=== PATIENT | male | born 1955 | race Caucasian/White ===

== ENCOUNTER 2018-01-03 08:02 | Emergency (ER) | payer MEDICARE ==
[~2018-01-03] VITALS: Ht 170.2 cm; Wt 99.8 kg
[~2018-01-03 08:02] MED LIST: ASPIRIN81 MG PO
[2018-01-03] MEDS ORDERED: ALBUTEROL SULF 0.083% NEB SOLN 3 ML NEB NEB STA (08:40)
[2018-01-03] MEDS ORDERED: IPRATROPIUM BROMIDE 0.02% 2.5 ML NEB NEB ONE (08:45)
--- NOTE | 2018-01-03 09:56 | Diagnostic Imaging Report ---
PROCEDURE: X-RAY CHEST, TWO VIEWS COMPARISON: None. INDICATIONS: LEFT SIDE CHEST PAIN, LEFT SCAPULAR PAIN FINDINGS: Lungs are well-inflated. No focal airspace consolidation, pleural effusion, or pneumothorax. Tortuosity of the thoracic aorta with atherosclerotic calcification. Normal heart size. No pulmonary edema. No acute osseous abnormality. CONCLUSION: No acute cardiopulmonary abnormality. Dictated by: Jeet Fam M.D. on 01/03/2018 at 9:08 Electronically approved by: Jeet Fam M.D. on 01/03/2018 at 9:08
[2018-01-03] MEDS ORDERED: KETOROLAC TROMETHAMINE 60 MG/2 ML VIAL IM ONE (10:00)
[2018-01-03] MEDS ORDERED: HYDROCODONE/APAP 10MG-325MG TAB PO ONE (10:00)
== END 2018-01-03 10:53 | disposition home or self-care (01) ==
LOC: ER 08:02
DX: M25.512 Pain in left shoulder (principal); S46.812A Strain of other muscles, fascia and tendons at shoulder and upper arm level, left arm, initial encounter
CPT/HCPCS: 71046; 93005; 94640; 99283; J1885

== ENCOUNTER 2018-08-31 13:31 | Emergency (ER) | payer MEDICARE ==
[~2018-08-31] VITALS: Ht 170.2 cm; Wt 99.8 kg
--- OUTSIDE RECORDS SUMMARY | 2018-08-31 13:35 | XMS REPORT ---
Author Author [email or web address] Address Unknown Phone Unavailable Care Team Providers Care Ash Collector Name Role Phone Bhavesh CLEMENTS Unavailable Unavailable Payers Payer Name Policy Type Policy Number Effective Date Expiration Date Problems This patient has no known problems. Allergies, Adverse Reactions, Alerts Allergy Name Allergy Type Status Severity Reaction(s) Onset Date Inactive Date Treating Clinician Comments PENICILLIN DA Active U 2018-08-15 00:00:00 Penicillins DA Active U 2018-08-15 00:00:00 NO KNOWN CONTRAST MEDIA ALLERG DA Active U 2000-09-10 00:00:00 NO KNOWN OTHER ALLERGIES DA Active U 2000-09-10 00:00:00 No Known Food Allergies DA Active U 2000-09-10 00:00:00 PENICILLIN DA Active U 2000-09-10 00:00:00 Medications This patient has no known medications. Results Test Description Test Time Test Comments Text Results Atomic Results Result Comments - XR CHEST 1 V 2018-08-28 12:22:00 FAX: Miguel Angel Wang MD [phone] [place]: B St: REG Name: ADRIANO SOLIS [facility] : 1955 Age/S: 63/M [address] [facility] Unit #: [id number] Loc: [place] [address] Phys: Miguel Angel Wang MD Acct: [id number] Dis Date: Status: REG ER PHONE #: [phone] Exam Date: 08/28/2018 1205 FAX #: [phone] Reason: CHEST PAIN EXAMS: CPT CODE: [id number] XR CHEST 1 V 46149 HISTORY: CHEST PAIN TECHNIQUE: AP chest x-ray COMPARISON: 08/15/18 FINDINGS: No airspace consolidation or ple ural effusion. Pulmonary hyperinflation, possible COPD. Normal heart size. Atherosclerotic vascular calcification of the thoracic aorta. Mild thoracic spondylosis. IMPRESSION: No acute findings or significant interval change. at 1222 Reported and signed by: Pamela Osman D.O. CC: Miguel Angel Wang MD Technologist: ALVINO BOBO(R) Trnscrd Date/Time/By: 08/28/2018 (3652) : By: [email or web address] Orig Print D/T: S: 08/28/2018 (7765) PAGE 1 Signed Report B-TYPE NATRIURETIC PEPTIDE 2018-08-28 12:16:00 B-TYPE NATRIURETIC PEPTIDE (test code=BNP) 34.91 pgram/mL 0-100 BASIC METABOLIC [id number] 12:01:00* Test Item Value Reference Range Comments SODIUM (test code=NA) 139 mmol/L 136-145 POTASSIUM (test code=K) 3.9 mmol/L 3.5-5.1 CHLORIDE (test code=CL) 102.0 mmol/L 98-107 CARBON DIOXIDE (test code=CO2) 31.0 mmol/L 21-32 ANION GAP (test code=GAP) 9.9 10-20 GLUCOSE (test code=GLU) 178 mg/dL 74-106 BLOOD UREA NITROGEN (test code=BUN) 15 mg/dL 7-18 GLOMERULAR FILTRATION RATE (test code=GFR) > 60 mL/min >=60 Estimated GFR by using Modified MDRD formula.Chronic kidney disease is defined as either kidney damageor GFR <60 mL/min/1.73 m2 for >3 months. CREATININE (test code=CREAT) 0.90 mg/dL 0.7-1.3 BUN/CREATININE RATIO (test code=BUN/CREA) 16.7 10-20 CALCIUM (test code=CA) 9.1 mg/dL 8.5-10.1 [id number] 12:01:00* Test Item Value Reference Range Comments TROPONIN-I (test code=TROPI) <0.015 ng/mL 0-0.045 BASIC METABOLIC [id number] 11:54:00* Test Item Value Reference Range Comments SODIUM (test code=NA) 139 mmol/L 136-145 POTASSIUM (test code=K) 3.9 mmol/L 3.5-5.1 CHLORIDE (test code=CL) 102.0 mmol/L 98-107 CARBON DIOXIDE (test code=CO2) mmol/L 21-32 ANION GAP (test code=GAP) 10-20 GLUCOSE (test code=GLU) mg/dL 74-106 BLOOD UREA NITROGEN (test code=BUN) mg/dL 7-18 GLOMERULAR FILTRATION RATE (test code=GFR) mL/min >=60 CREATININE (test code=CREAT) mg/dL 0.7-1.3 BUN/CREATININE RATIO (test code=BUN/CREA) 10-20 CALCIUM (test code=CA) mg/dL 8.5-10.1 [id number] 11:54:00* Test Item Value Reference Range Comments TROPONIN-I (test code=TROPI) ng/mL 0-0.045 CBC W/O [id number] 11:39:00* Test Item Value Reference Range Comments WHITE BLOOD CELL (test code=WBC) 9.5 K/mm3 4.5-12.5 RED BLOOD CELL (test code=RBC) 4.77 mill/mm3 4.0-5.8 HEMOGLOBIN (test code=HGB) 14.3 gram/dL 13.0-17.5 HEMATOCRIT (test code=HCT) 45.8 % 42.0-52.0 MEAN CELL VOLUME (test code=MCV) 96.0 fL 80-98 MEAN CELL HGB (test code=MCH) 30.0 picogram 27.0-33.0 MEAN CELL HGB CONCETRATION (test code=MCHC) 31.2 gram/dL 33.0-36.0 RED CELL DISTRIBUTION WIDTH (test code=RDW) 13.1 % 11.6-16.2 PLATELET COUNT (test code=PLT) 262 K/mm3 150-450 MEAN PLATELET VOLUME (test code=MPV) 9.2 fL 6.7-11.0 URINALYSIS [id number] 11:49:00* Test Item Value Reference Range Comments UA COLOR (test code=COLU) STRAW YELLOW UA APPEARANCE (test code=APPU) CLEAR CLEAR UA GLUCOSE DIPSTICK (test code=DGLUU) NEGATIVE mg/dL NEGATIVE UA BILIRUBIN DIPSTICK (test code=BILU) NEGATIVE mg/dL NEGATIVE UA KETONE DIPSTICK (test code=KETU) NEGATIVE mg/dL NEGATIVE UA SPECIFIC GRAVITY (test code=SGU) 1.006 1.001-1.035 UA BLOOD DIPSTICK (test code=NEREYDA) Negative mg/dL NEGATIVE UA PH DIPSTICK (test code=TAVO) 7.0 5.0-8.0 UA PROTEIN DIPSTICK (test code=PROU) NEGATIVE mg/dL NEGATIVE UA UROBILINIOGEN DIPSTICK (test code=URO) NEGATIVE mg/dL NEGATIVE UA NITRITE DIPSTICK (test code=LETI) NEGATIVE NEGATIVE UA LEUKOCYTE ESTERASE W REFLEX (test code=LEUUR) NEGATIVE Guille/uL NEGATIVE UA WBC (test code=WBCU) 0-5 per HPF 0-5 UA RBC (test code=RBCU) 0-2 #/HPF 0-5 UA EPITHELIAL CELLS (test code=EPIU) None seen per HPF Few UA BACTERIA (test code=BACU) FEW #/HPF NONE Urine Source? Clean CatchDRUGS OF ABUSE SCREEN [id number] 11:49:00* Test Item Value Reference Range Comments URN COCAINE (test code=COCAURN) NEGATIVE <300 ng/mL URN CANNABINOIDS (test code=CANNABURN) POSITIVE <50 ng/mL This test provides only a preliminary test result. A morespecific alternate chemical method must be used in order toobtain a confirmed analytical result. Gas chromatography/mass spectrometry (GC/MS) is thepreferred confirmatory method. Other chemical confirmationmethods are available. Clinical consideration and professional judgment should be applied to any drug of abusetest result, particularly when preliminary positive resultsare used.Unconfirmed screening results must not be used fornon-medical purposes (e.g., employment testing, legaltesting). URN AMPHETAMINE (test code=AMPHETURN) POSITIVE <1000 ng/mL This test provides only a preliminary test result. A morespecific alternate chemical method must be used in order toobtain a confirmed analytical result. Gas chromatography/mass spectrometry (GC/MS) is thepreferred confirmatory method. Other chemical confirmationmethods are available. Clinical consideration and professional judgment should be applied to any drug of abusetest result, particularly when preliminary positive resultsare used.Unconfirmed screening results must not be used fornon-medical purposes (e.g., employment testing, legaltesting). URN BARBITURATE (test code=BARBITURN) NEGATIVE <200 ng/mL URN BENZODIAZEPINE (test code=BENZOURN) NEGATIVE <200 ng/mL URN OPIATES (test code=OPIATURN) POSITIVE <300 ng/mL This test provides only a preliminary test result. A morespecific alternate chemical method must be used in order toobtain a confirmed analytical result. Gas chromatography/mass spectrometry (GC/MS) is thepreferred confirmatory method. Other chemical confirmationmethods are available. Clinical consideration and professional judgment should be applied to any drug of abusetest result, particularly when preliminary positive resultsare used.Unconfirmed screening results must not be used fornon-medical purposes (e.g., employment testing, legaltesting). URN PHENCYCLIDINE (PCP) (test code=PHENCURN) NEGATIVE <25 ng/mL URN METHADONE (test code=METHAURN) NEGATIVE <300 ng/mL Urine Source? Clean Catch- XR CHEST 1 [id number] 11:47:00 FAX: Vin Wilson DO [place]: B St: REG Name: Manolo JAZMYNEADRIANO ARREAGA [facility] : [birth year] Age/S: 63/M [address] [facility] Unit #: [id number] Loc: [place] [address] Phys: Vin Wilson DO Acct: [id number] Dis Date: Status: REG ER PHONE #: [phone] Exam Date: 08/15/2018 0948 FAX #: [phone] Reason: Altered Mental Status EXAMS: CPT CODE: [id number] XR CHEST 1 V 46183 HISTORY: Confusion. COMPARISON: None available. No acute infiltrates, effusion or mamadou estion is noted. Lung scarring. Cardiomegaly. IMP RESSION: No acute infiltrates, effusion or congestion. at 1147 Reported and signed by: Anthony Duron M.D. CC: Vin Wilson DO Technologist: Patricia Ren RT(R) Trnscrd Date/Time/By: (6696) : By: [email or web address] Orig Print D/T: S: 08/15/2018 (9248) PAGE 1 Signed Report URINALYSIS [id number] 11:41:00* Test Item Value Reference Range Comments UA COLOR (test code=COLU) STRAW YELLOW UA APPEARANCE (test code=APPU) CLEAR CLEAR UA GLUCOSE DIPSTICK (test code=DGLUU) NEGATIVE mg/dL NEGATIVE UA BILIRUBIN DIPSTICK (test code=BILU) NEGATIVE mg/dL NEGATIVE UA KETONE DIPSTICK (test code=KETU) NEGATIVE mg/dL NEGATIVE UA SPECIFIC GRAVITY (test code=SGU) 1.006 1.001-1.035 UA BLOOD DIPSTICK (test code=NEREYDA) Negative mg/dL NEGATIVE UA PH DIPSTICK (test code=TAVO) 7.0 5.0-8.0 UA PROTEIN DIPSTICK (test code=PROU) NEGATIVE mg/dL NEGATIVE UA UROBILINIOGEN DIPSTICK (test code=URO) NEGATIVE mg/dL NEGATIVE UA NITRITE DIPSTICK (test code=LETI) NEGATIVE NEGATIVE UA LEUKOCYTE ESTERASE W REFLEX (test code=LEUUR) NEGATIVE Guille/uL NEGATIVE UA WBC (test code=WBCU) 0-5 per HPF 0-5 UA RBC (test code=RBCU) 0-2 #/HPF 0-5 UA EPITHELIAL CELLS (test code=EPIU) per HPF Few UA BACTERIA (test code=BACU) FEW #/HPF NONE Urine Source? Clean CatchDRUGS OF ABUSE SCREEN [id number] 11:41:00* Test Item Value Reference Range Comments URN COCAINE (test code=COCAURN) NEGATIVE <300 ng/mL URN CANNABINOIDS (test code=CANNABURN) POSITIVE <50 ng/mL This test provides only a preliminary test result. A morespecific alternate chemical method must be used in order toobtain a confirmed analytical result. Gas chromatography/mass spectrometry (GC/MS) is thepreferred confirmatory method. Other chemical confirmationmethods are available. Clinical consideration and professional judgment should be applied to any drug of abusetest result, particularly when preliminary positive resultsare used.Unconfirmed screening results must not be used fornon-medical purposes (e.g., employment testing, legaltesting). URN AMPHETAMINE (test code=AMPHETURN) POSITIVE <1000 ng/mL This test provides only a preliminary test result. A morespecific alternate chemical method must be used in order toobtain a confirmed analytical result. Gas chromatography/mass spectrometry (GC/MS) is thepreferred confirmatory method. Other chemical confirmationmethods are available. Clinical consideration and professional judgment should be applied to any drug of abusetest result, particularly when preliminary positive resultsare used.Unconfirmed screening results must not be used fornon-medical purposes (e.g., employment testing, legaltesting). URN BARBITURATE (test code=BARBITURN) NEGATIVE <200 ng/mL URN BENZODIAZEPINE (test code=BENZOURN) NEGATIVE <200 ng/mL URN OPIATES (test code=OPIATURN) POSITIVE <300 ng/mL This test provides only a preliminary test result. A morespecific alternate chemical method must be used in order toobtain a confirmed analytical result. Gas chromatography/mass spectrometry (GC/MS) is thepreferred confirmatory method. Other chemical confirmationmethods are available. Clinical consideration and professional judgment should be applied to any drug of abusetest result, particularly when preliminary positive resultsare used.Unconfirmed screening results must not be used fornon-medical purposes (e.g., employment testing, legaltesting). URN PHENCYCLIDINE (PCP) (test code=PHENCURN) NEGATIVE <25 ng/mL URN METHADONE (test code=METHAURN) NEGATIVE <300 ng/mL Urine Source? Clean CatchURINALYSIS [id number] 11:40:00* Test Item Value Reference Range Comments UA COLOR (test code=COLU) STRAW YELLOW UA APPEARANCE (test code=APPU) CLEAR CLEAR UA GLUCOSE DIPSTICK (test code=DGLUU) NEGATIVE mg/dL NEGATIVE UA BILIRUBIN DIPSTICK (test code=BILU) NEGATIVE mg/dL NEGATIVE UA KETONE DIPSTICK (test code=KETU) NEGATIVE mg/dL NEGATIVE UA SPECIFIC GRAVITY (test code=SGU) 1.006 1.001-1.035 UA BLOOD DIPSTICK (test code=NEREYDA) Negative mg/dL NEGATIVE UA PH DIPSTICK (test code=TAVO) 7.0 5.0-8.0 UA PROTEIN DIPSTICK (test code=PROU) NEGATIVE mg/dL NEGATIVE UA UROBILINIOGEN DIPSTICK (test code=URO) NEGATIVE mg/dL NEGATIVE UA NITRITE DIPSTICK (test code=LETI) NEGATIVE NEGATIVE UA LEUKOCYTE ESTERASE W REFLEX (test code=LEUUR) NEGATIVE Guille/uL NEGATIVE UA WBC (test code=WBCU) 0-5 per HPF 0-5 UA RBC (test code=RBCU) 0-2 #/HPF 0-5 UA EPITHELIAL CELLS (test code=EPIU) per HPF Few UA BACTERIA (test code=BACU) FEW #/HPF NONE Urine Source? Clean CatchDRUGS OF ABUSE SCREEN [id number] 11:40:00* Test Item Value Reference Range Comments URN COCAINE (test code=COCAURN) <300 ng/mL URN CANNABINOIDS (test code=CANNABURN) <50 ng/mL URN AMPHETAMINE (test code=AMPHETURN) <1000 ng/mL URN BARBITURATE (test code=BARBITURN) <200 ng/mL URN BENZODIAZEPINE (test code=BENZOURN) <200 ng/mL URN OPIATES (test code=OPIATURN) <300 ng/mL URN PHENCYCLIDINE (PCP) (test code=PHENCURN) <25 ng/mL URN METHADONE (test code=METHAURN) <300 ng/mL Urine Source? Clean CatchURINALYSIS [id number] 11:17:00* Test Item Value Reference Range Comments UA COLOR (test code=COLU) STRAW YELLOW UA APPEARANCE (test code=APPU) CLEAR CLEAR UA GLUCOSE DIPSTICK (test code=DGLUU) NEGATIVE mg/dL NEGATIVE UA BILIRUBIN DIPSTICK (test code=BILU) NEGATIVE mg/dL NEGATIVE UA KETONE DIPSTICK (test code=KETU) NEGATIVE mg/dL NEGATIVE UA SPECIFIC GRAVITY (test code=SGU) 1.006 1.001-1.035 UA BLOOD DIPSTICK (test code=NEREYDA) Negative mg/dL NEGATIVE UA PH DIPSTICK (test code=TAVO) 7.0 5.0-8.0 UA PROTEIN DIPSTICK (test code=PROU) NEGATIVE mg/dL NEGATIVE UA UROBILINIOGEN DIPSTICK (test code=URO) NEGATIVE mg/dL NEGATIVE UA NITRITE DIPSTICK (test code=LETI) NEGATIVE NEGATIVE UA LEUKOCYTE ESTERASE W REFLEX (test code=LEUUR) NEGATIVE Guille/uL NEGATIVE UA WBC (test code=WBCU) per HPF 0-5 UA RBC (test code=RBCU) per HPF 0-5 UA EPITHELIAL CELLS (test code=EPIU) per HPF Few UA BACTERIA (test code=BACU) per HPF NONE Urine Source? Clean CatchDRUGS OF ABUSE SCREEN [id number] 11:17:00* Test Item Value Reference Range Comments URN COCAINE (test code=COCAURN) <300 ng/mL URN CANNABINOIDS (test code=CANNABURN) <50 ng/mL URN AMPHETAMINE (test code=AMPHETURN) <1000 ng/mL URN BARBITURATE (test code=BARBITURN) <200 ng/mL URN BENZODIAZEPINE (test code=BENZOURN) <200 ng/mL URN OPIATES (test code=OPIATURN) <300 ng/mL URN PHENCYCLIDINE (PCP) (test code=PHENCURN) <25 ng/mL URN METHADONE (test code=METHAURN) <300 ng/mL Urine Source? Clean CatchBASIC METABOLIC [id number] 10:29:00* Test Item Value Reference Range Comments SODIUM (test code=NA) 137 mmol/L 136-145 POTASSIUM (test code=K) 4.2 mmol/L 3.5-5.1 CHLORIDE (test code=CL) 100.0 mmol/L 98-107 CARBON DIOXIDE (test code=CO2) 31.0 mmol/L 21-32 ANION GAP (test code=GAP) 10.2 10-20 GLUCOSE (test code=GLU) 129 mg/dL 74-106 BLOOD UREA NITROGEN (test code=BUN) 12 mg/dL 7-18 GLOMERULAR FILTRATION RATE (test code=GFR) > 60 mL/min >=60 Estimated GFR by using Modified MDRD formula.Chronic kidney disease is defined as either kidney damageor GFR <60 mL/min/1.73 m2 for >3 months. CREATININE (test code=CREAT) 0.70 mg/dL 0.7-1.3 BUN/CREATININE RATIO (test code=BUN/CREA) 17.1 10-20 CALCIUM (test code=CA) 8.9 mg/dL 8.5-10.1 HEPATIC FUNCTION [id number] 10:29:00* Test Item Value Reference Range Comments TOTAL PROTEIN (test code=PROT) 6.8 gram/dL 6.4-8.2 ALBUMIN (test code=ALB) 3.8 g/dL 3.4-5.0 GLOBULIN (test code=GLOB) 3.0 gram/dL 2.7-4.2 ALBUMIN/GLOBULIN RATIO (test code=A/G) 1.3 0.75-1.50 BILIRUBIN TOTAL (test code=BILT) 0.50 mg/dL 0.0-1.0 BILIRUBIN DIRECT (test code=BILD) 0.17 mg/dL 0.0-0.20 SGOT/AST (test code=AST) 22 IUnit/L 15-37 SGPT/ALT (test code=ALT) 24 IUnit/L 12-78 ALKALINE PHOSPHATASE TOTAL (test code=ALKP) 129 IUnit/L 45-117 Note change in reference range due to change in reagent. [id number] 10:29:00* Test Item Value Reference Range Comments TROPONIN-I (test code=TROPI) <0.015 ng/mL 0-0.045 [id number] 10:29:00* Test Item Value Reference Range Comments ACETAMINOPHEN (test code=ACET) < 10 mcg/mL 10-30 A RANGE OF 10-30 mcg/mL IS A THERAPEUTIC RANGE. TOXIC CONCENTRATIONS: >150 mcg/mL AT 4 HOURS AFTER INGESTION >=50 mcg/mL AT 12 HOURS AFTER INGESTION [id number] 10:29:00* Test Item Value Reference Range Comments SALICYLATE (test code=BERNIE) < 1.7 mg/dL 2.8-20.0 [id number] 10:29:00* Test Item Value Reference Range Comments ALCOHOL (test code=ALC) < 3 mg/dL 0.0-3.0 INTERPRETIVE DATA NOTE: POSITIVE SCREENING RESULTS SHOULD BE CONSIDERED PRESUMPTIVE.WHEN COLLECTED FOR MEDICAL PURPOSES ONLY. SPECIMEN WILL NOTBE COLLECTED BY CHAIN OF CUSTODY.IF A CONFIRMATION OF POSITIVE RESULTS IS DESIRED, ACONFIRMATION TEST MUST BE REQUESTED BY THE PHYSICIAN AT ANADDITIONAL CHARGE TO THE PATIENT. [id number] 10:21:00* Test Item Value Reference Range Comments AMMONIA (test code=AMM) < 10 umol/L RESULT VERIFIED BY REPEAT ANALYSIS - CT HEAD/BRAIN W/O [id number] 10:12:00 Name: ADRIANO SOLIS [facility] : 1955 Age/S: 63 / M [address] [facility] Unit #: [id number] Loc: [place] [address] Phys: Vin Wilson Acct: [id number] Dis Date: Status: REG ER PHONE #: [phone] Exam Date: 08/15/2018954 FAX #: [phone] Reason: Altered Mental Status EXAMS: CPT CODE: [id number] CT HEAD/BRAIN W/O CONT 73724 HISTORY: Confusion. COMPARISON: None available. CT brain without contrast: Automated exposure control. No acute intracranial bleeds or extra-axial collections are noted. No acute territorial vascular infarction is noted. 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 The sulci, gyri, ventricles and subarachnoid spaces and the basilar cisterns are normal for patient's age. No herniation or hydrocephalus or midline shift is noted. Mild periventricular ischemic gliosis is noted. Age-appropriate atrophy is noted as well. Portions of the visualized paranasal sinuses are normal. No obvious bony calvarial defect is noted. IMPRESSION: No acute intracranial bleeds or extra-axial collections. No acute territorial vascular infarction. No herniation or hydrocephalus or midline shift. Chronic white matter ischemic disease and atrophy . at 1012 Reported and signed by: Anthony Duron M.D. CC: Vin Wilson DO Technologist:Navneet Johnston RT(R),(MR), (CT); CTDI: DLP: Trnscb Date/Time: 08/15/2018 (1012) [email or web address] Orig Print D/T: S: 08/15/2018 (1015) CTDI: D LP: PAGE 1 Signed Report BASIC METABOLIC [id number] 10:10:00* Test Item Value Reference Range Comments SODIUM (test code=NA) 137 mmol/L 136-145 POTASSIUM (test code=K) 4.2 mmol/L 3.5-5.1 CHLORIDE (test code=CL) 100.0 mmol/L 98-107 CARBON DIOXIDE (test code=CO2) mmol/L 21-32 ANION GAP (test code=GAP) 10-20 GLUCOSE (test code=GLU) mg/dL 74-106 BLOOD UREA NITROGEN (test code=BUN) mg/dL 7-18 GLOMERULAR FILTRATION RATE (test code=GFR) mL/min >=60 CREATININE (test code=CREAT) mg/dL 0.7-1.3 BUN/CREATININE RATIO (test code=BUN/CREA) 10-20 CALCIUM (test code=CA) mg/dL 8.5-10.1 HEPATIC FUNCTION [id number] 10:10:00* Test Item Value Reference Range Comments TOTAL PROTEIN (test code=PROT) gram/dL 6.4-8.2 ALBUMIN (test code=ALB) g/dL 3.4-5.0 GLOBULIN (test code=GLOB) gram/dL 2.7-4.2 ALBUMIN/GLOBULIN RATIO (test code=A/G) 0.75-1.50 BILIRUBIN TOTAL (test code=BILT) mg/dL 0.0-1.0 BILIRUBIN DIRECT (test code=BILD) mg/dL 0.0-0.20 SGOT/AST (test code=AST) IUnit/L 15-37 SGPT/ALT (test code=ALT) IUnit/L 12-78 ALKALINE PHOSPHATASE TOTAL (test code=ALKP) IUnit/L 45-117 [id number] 10:10:00* Test Item Value Reference Range Comments TROPONIN-I (test code=TROPI) ng/mL 0-0.045 [id number] 10:10:00* Test Item Value Reference Range Comments ACETAMINOPHEN (test code=ACET) mcg/mL 10-30 [id number] 10:10:00* Test Item Value Reference Range Comments SALICYLATE (test code=BERNIE) mg/dL 2.8-20.0 [id number] 10:10:00* Test Item Value Reference Range Comments ALCOHOL (test code=ALC) mg/dL 0-3 PROTHROMBIN [id number] 10:10:00* Test Item Value Reference Range Comments PROTHROMBIN TIME PATIENT (test code=PTP) 10.6 seconds 9.0-14.0 INTERNATIONAL NORMAL RATIO (test code=INR) 0.9 0.8-1.2 The therapeutic range for oral anticoagulant therapy formost indications is an international normalized ratio (INR)of between 2.0 and 3.0. The recommended therapeutic INRrange for various clinical situations is listed below: Clinical Situation INR range Pulmonary e mbolism treatment (2.0-3.0)Venous thrombosis treatmentVenous thrombosis prophylaxis (high risk surgery)Prevention of systemic embolism from: Acute myocardial infarction Valvular heart disease Atrial fibrillation Mechanical prosthetic heart valves (2.5-3.5) IS PATIENT ON ANTICOAGULANTS? NTHROMBOPLASTIN TIME [id number] 10:10:00* Test Item Value Reference Range Comments THROMBOPLASTIN TIME PARTIAL (test code=PTT) 31.1 seconds 25.0-36.5 IS PATIENT ON ANTICOAGULANTS? NCBC W/AUTO [id number] 10:06:00* Test Item Value Reference Range Comments WHITE BLOOD CELL (test code=WBC) 6.6 K/mm3 4.5-12.5 RED BLOOD CELL (test code=RBC) 4.61 mill/mm3 4.0-5.8 HEMOGLOBIN (test code=HGB) 13.5 gram/dL 13.0-17.5 HEMATOCRIT (test code=HCT) 43.7 % 42.0-52.0 MEAN CELL VOLUME (test code=MCV) 94.8 fL 80-98 MEAN CELL HGB (test code=MCH) 29.3 picogram 27.0-33.0 MEAN CELL HGB CONCETRATION (test code=MCHC) 30.9 gram/dL 33.0-36.0 RED CELL DISTRIBUTION WIDTH (test code=RDW) 13.2 % 11.6-16.2 RED CELL DISTRIBUTION WIDTH SD (test code=RDW-SD) 45.5 fL 37.0-51.0 PLATELET COUNT (test code=PLT) 241 K/mm3 150-450 MEAN PLATELET VOLUME (test code=MPV) 8.7 fL 6.7-11.0 NEUTROPHIL % (test code=NT%) 71.6 % 39.0-69.0 IMMATURE GRANULOCYTE % (test code=IG%) 0.3 % 0.0-5.0 LYMPHOCYTE % (test code=LY%) 17.1 % 25.0-55.0 MONOCYTE % (test code=MO%) 7.9 % 0.0-10.0 EOSINOPHIL % (test code=EO%) 2.0 % 0.0-5.0 BASOPHIL % (test code=BA%) 1.1 % 0.0-1.0 NUCLEATED RBC % (test code=NRBC%) 0.0 % 0-0 NEUTROPHIL # (test code=NT#) 4.69 K/mm3 1.8-7.7 IMMATURE GRANULOCYTE # (test code=IG#) 0.02 x10 3/uL 0-0.03 LYMPHOCYTE # (test code=LY#) 1.12 K/mm3 1.0-5.0 MONOCYTE # (test code=MO#) 0.52 K/mm3 0-0.8 EOSINOPHIL # (test code=EO#) 0.13 K/mm3 0.0-0.5 BASOPHIL # (test code=BA#) 0.07 K/mm3 0.0-0.2 NUCLEATED RBC # (test code=NRBC#) 0.00 K/mm3 0.0-0.1 MANUAL DIFF REQUIRED (test code=MDIFF) NO CBC W/AUTO [id number] 09:58:00* Test Item Value Reference Range Comments WHITE BLOOD CELL (test code=WBC) K/mm3 4.5-12.5 RED BLOOD CELL (test code=RBC) mill/mm3 4.0-5.8 HEMOGLOBIN (test code=HGB) 13.5 gram/dL 13.0-17.5 HEMATOCRIT (test code=HCT) 43.7 % 42.0-52.0 MEAN CELL VOLUME (test code=MCV) fL 80-98 MEAN CELL HGB (test code=MCH) picogram 27.0-33.0 MEAN CELL HGB CONCETRATION (test code=MCHC) gram/dL 33.0-36.0 RED CELL DISTRIBUTION WIDTH (test code=RDW) % 11.6-16.2 RED CELL DISTRIBUTION WIDTH SD (test code=RDW-SD) fL 37.0-51.0 PLATELET COUNT (test code=PLT) K/mm3 150-450 MEAN PLATELET VOLUME (test code=MPV) fL 6.7-11.0 NEUTROPHIL % (test code=NT%) % 39.0-69.0 IMMATURE GRANULOCYTE % (test code=IG%) % 0.0-5.0 LYMPHOCYTE % (test code=LY%) % 25.0-55.0 MONOCYTE % (test code=MO%) % 0.0-10.0 EOSINOPHIL % (test code=EO%) % 0.0-5.0 BASOPHIL % (test code=BA%) % 0.0-1.0 NEUTROPHIL # (test code=NT#) K/mm3 1.8-7.7 LYMPHOCYTE # (test code=LY#) K/mm3 1.0-5.0 MONOCYTE # (test code=MO#) K/mm3 0-0.8 EOSINOPHIL # (test code=EO#) K/mm3 0.0-0.5 BASOPHIL # (test code=BA#) K/mm3 0.0-0.2 CHEMISTRY 8 [id number] 09:48:00* Test Item Value Reference Range Comments ISTAT-SODIUM (test code=NAP) mmol/L 135-148 ISTAT-POTASSIUM (test code=KP) mmol/L 3.5-5.5 ISTAT-CHLORIDE (test code=CLP) mmol/L 101-109 ISTAT CARBON DIOXIDE (test code=ISTAT-CO2) mmol/L 21-32 ISTAT CALCIUM IONIZED (test code=ISTAT-JOLLY) mg/dL 1.12-1.32 ISTAT-ANION GAP (test code=GAPP) MEQ/L 10-20 ISTAT-GLUCOSE (test code=GLUP) mg/dL 74-106 ISTAT-BUN (test code=BUNP) mg/dL 3-21 BEDSIDE CREATININE (test code=CREATBED) mg/dL 0.7-1.3 GLOMERULAR FILTRATION RATE POC (test code=GFRBED) 113 >60 CHEMISTRY 8 [id number] 09:48:00* Test Item Value Reference Range Comments ISTAT-SODIUM (test code=NAP) 136 mmol/L 135-148 ISTAT-POTASSIUM (test code=KP) 4.3 mmol/L 3.5-5.5 ISTAT-CHLORIDE (test code=CLP) 93 mmol/L 101-109 ISTAT CARBON DIOXIDE (test code=ISTAT-CO2) 33.0 mmol/L 21-32 ISTAT CALCIUM IONIZED (test code=ISTAT-JOLLY) 1.20 mg/dL 1.12-1.32 ISTAT-ANION GAP (test code=GAPP) 14.0 MEQ/L 10-20 ISTAT-GLUCOSE (test code=GLUP) 134 mg/dL 74-106 ISTAT-BUN (test code=BUNP) 13 mg/dL 3-21 BEDSIDE CREATININE (test code=CREATBED) 0.7 mg/dL 0.7-1.3 GLOMERULAR FILTRATION RATE POC (test code=GFRBED) 113 >60 CHEST 2 [id number] 09:08:00 [place] [id number] Patient Name: ADRIANO SOLIS MR #: [id number] : 1955 Age/Sex: 62/M Req #: [id number] Adm Physician: Ordered by: HEMANT CLEMENTS MD Report #: [id number] Location: Room/Bed: Procedure: [id number] DX/CHEST 2 VIEWS Exam Date: 01/03/18 Exam Time: 815 REPORT STATUS: Signed PROCEDURE: X-RAY CHEST, TWO VIEWS COMPARISON: None. INDICATIONS: LEFT SIDE CHEST PAIN, LEFT SCAPULAR PAIN FINDINGS: Lungs are well-inflated. No focal airspace consolidation, pleural effusion, or pneumothorax. Tortuosity of the thoracic aorta with atherosclerotic calcification. Normal h eart size. No pulmonary edema. No acute osseous abnormality. CONCLUS ION: No acute cardiopulmonary abnormality. Dictated by: Padma fajardo M.D. on 01/03/2018 at 9:08 Electronically approved by: Padma Noe on 01/03/2018 at 9:08 Dictated By: PADMA DHALIWAL MD [facility] Signed By: PADMA DHALIWAL MD on 01/03/18907 Transcribed By: MUKUL on 02/10 COPY TO: HEMANT CLEMENTS MD
[2018-08-31 14:31] LABS: BASOPHILS # (AUTO) 0.1 (0.0-0.1); BASOPHILS % 0.9 % (0.0-1.0); EOSINOPHILS # (AUTO) 0.2 (0.0-0.4); EOSINOPHILS % 2.1 % (0.0-6.0); HEMATOCRIT 40.6 % (38.2-49.6); LYMPHOCYTES # (AUTO) 0.9 (1.0-3.2); LYMPHOCYTES % 12.4 % (18.0-39.1); MEAN CORPUSCULAR HEMOGLOBIN 30.2 pg (28-32); MEAN CORPUSCULAR VOLUME 94.4 fL (81-99); MONOCYTES # (AUTO) 0.6 (0.2-0.8); NEUTROPHILS # (AUTO) 5.3 (2.1-6.9); NEUTROPHILS % 75.2 % (38.7-80.0); PLATELET COUNT 279 x10e3/uL (140-360); RED CELL DISTRIBUTION WIDTH 13.2 % (11.7-14.4)
[2018-08-31 14:39] LABS: AMPHETAMINES SCREEN,URINE POSITIVE (NEGATIVE); BENZODIAZEPINES SCREEN,URINE POSITIVE (NEGATIVE); PHENCYCLIDINE SCREEN,URINE NEGATIVE (NEGATIVE)
[2018-08-31 14:42] LABS: INR 0.88; PROTHROMBIN TIME 12.4 seconds (11.9-14.5)
[2018-08-31 14:43] LABS: PARTIAL THROMBOPLASTIN TIME 31.4 seconds (23.8-35.5)
[2018-08-31 14:54] LABS: ALANINE AMINOTRANSFERASE 15 IU/L (0-55); ALBUMIN 3.7 g/dL (3.5-5.0); ALBUMIN/GLOBULIN RATIO 1.2 (0.8-2.0); ALKALINE PHOSPHATASE 111 IU/L (40-150); ANION GAP 12.8 mmol/L (8-16); BLOOD UREA NITROGEN 16 mg/dL (7-26); BUN/CREATININE RATIO 19 (6-25); CALCIUM 9.6 mg/dL (8.4-10.2); CARBON DIOXIDE 29 mmol/L (22-29); CHLORIDE 100 mmol/L (98-107); CREATINE KINASE 169 IU/L (30-200); CREATININE, SERUM 0.84 mg/dL (0.72-1.25); EST GLOMERULAR FILTRATION RATE > 60 ML/MIN (60-); GLUCOSE 243 mg/dL (74-118); POTASSIUM 3.8 mmol/L (3.5-5.1); SODIUM 138 mmol/L (136-145)
[2018-08-31 14:57] LABS: ACETAMINOPHEN < 3 ug/mL (10-30); SALICYLATE < 5.0 mg/dL (0-30)
--- NOTE | 2018-08-31 15:09 | Diagnostic Imaging Report ---
EXAMINATION: Head CT HISTORY: Slurred speech, evaluate for acute stroke. COMPARISON: None. TECHNIQUE: Multidetector axial images were obtained without contrast from the foramen magnum to the vertex . The images were reconstructed using brain and bone algorithms. Thin section brain images were reformatted into coronal and sagittal planes. Image quality: Motion/streaking artifact limits the evaluation of the skull base and posterior cranial fossa. Dose modulation, iterative reconstruction, and/or weight based adjustment of the mA/kV was utilized to reduce the radiation dose to as low as reasonably achievable. FINDINGS: Parenchyma: 1. Prominent, cavitating encephalomalacia in the left inferior frontal, anterior insular and anterior temporal lobes, with compensatory dilatation of the left frontal horn, this may represent sequela from remote infarct, hemorrhage or trauma. 2. Slitlike small cavitating encephalomalacia along the external capsule on the right side may as well represent sequela from remote insult. 3. Few scattered white matter hypodensities, most likely chronic microvascular ischemic changes. 4. No mass or hemorrhage. No CT evidence of acute territorial vascular insult. Extra-axial spaces:No abnormal density. No extra-axial fluid collections Brain volume: Normal for age. Ventricles: No hydrocephalus or displacement. Arteries: No density suggestive of thrombus. Dural sinuses: No abnormal density. Extra-axial spaces: No abnormal density. Foramen magnum: No mass, Chiari malformation, or basilar invagination. Sella: No obvious mass. Paranasal/mastoid sinuses: Imaged portions unremarkable. Skull/Scalp: No lytic or blastic lesions. No fractures. IMPRESSION: 1. No acute intracranial hemorrhage. 2. 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 3. Similar smaller hypodensity in the right external capsule. 4. Mild chronic microvascular ischemic changes. Signed by: Dr. Dolores Jo M.D. on 08/31/2018 3:06 PM
--- NOTE | 2018-08-31 15:49 | Diagnostic Imaging Report ---
EXAMINATION: CHEST SINGLE (PORTABLE) INDICATION: Slurred speech, sleepy. COMPARISON: None FINDINGS: TUBES and LINES: None. LUNGS: The lungs are hyperinflated. There are patchy opacities at the bilateral lung bases, right greater than left. No evidence of pulmonary edema. PLEURA: No pleural effusion or pneumothorax. HEART AND MEDIASTINUM: The cardiomediastinal silhouette is unremarkable. BONES AND SOFT TISSUES: No acute osseous abnormality. UPPER ABDOMEN: No free air under the diaphragm. IMPRESSION: Emphysematous changes of the lungs with patchy opacities at the lung bases, which may reflect aspiration or atelectasis in the appropriate clinical setting. Suggest follow-up chest radiograph in 6-8 weeks to assess for resolution. Signed by: Dr. Salina Garcia MD on 08/31/2018 3:46 PM
--- NOTE | 2018-08-31 16:35 | NUR ---
Unable to obtain emergency contact for patient at this time.
--- NOTE | 2018-08-31 16:47 | NUR ---
Able to contact Kimberly Givens at [phone]. She states she is on her way here.
[2018-08-31 16:52] VITALS: BP 123/81
--- NOTE | 2018-08-31 17:43 | NUR ---
Family just arrived at this time. ER MD to talk to family regarding discharge.
== END 2018-08-31 18:15 | disposition home or self-care (01) ==
LOC: ER 13:31
DX: R41.0 Disorientation, unspecified (principal); F03.90 Unspecified dementia, unspecified severity, without behavioral disturbance, psychotic disturbance, mood disturbance, and anxiety; G93.89 Other specified disorders of brain; F15.20 Other stimulant dependence, uncomplicated; F12.20 Cannabis dependence, uncomplicated; R73.9 Hyperglycemia, unspecified; J44.9 Chronic obstructive pulmonary disease, unspecified; F17.210 Nicotine dependence, cigarettes, uncomplicated
CPT/HCPCS: 36415; 70450; 71045; 80053; 80307; 80320; 80329; 82550; 82553; 84484; 85025; 85610; 85730; 93005; 99284

== ENCOUNTER 2019-02-01 16:13 | Observation (INO) | payer MEDICARE ==
[2019-02-01 17:25] VITALS: BP 138/78
--- NOTE | 2019-02-01 17:35 | NUR ---
PATIENT WALKED OUT OF FACILITY.
--- NOTE | 2019-02-01 17:35 | NUR ---
PATIENT EXPRESSED WANTING TO LEAVE AMA. PAPERWORK PRINTED AND SIGNED BY PATIENT. INFORMED PATIENT OF MEDICAL RISKS. REMOVED PATIENTS IV. CATHETER TIP INTACT AND PRESSURE DRESSING APPLIED ON REMOVAL.
--- NOTE | 2019-02-01 17:37 | NUR ---
Informed Dr. Reilly that patient left AMA.
[2019-02-05] MEDS ORDERED: GABAPENTIN300 MG PO (20:53)
== END 2019-02-01 17:35 | disposition left against medical advice (07) ==
LOC: MED/SURG 16:55
DX: R07.9 Chest pain, unspecified (principal); R06.02 Shortness of breath; F17.210 Nicotine dependence, cigarettes, uncomplicated; J44.9 Chronic obstructive pulmonary disease, unspecified
CPT/HCPCS: G0378

== ENCOUNTER 2020-09-04 22:47 | Inpatient (IN) | payer MEDICARE ==
[~2020-09-04] VITALS: Ht 167.6 cm; Wt 69.4 kg
[~2020-09-04 22:47] MED LIST changes: +GABAPENTIN300 MG PO
[2020-09-04 23:50] LABS: BASOPHILS # (AUTO) 0.1 (0.0-0.1); BASOPHILS % 0.7 % (0.0-1.0); EOSINOPHILS # (AUTO) 0.2 (0.0-0.4); EOSINOPHILS % 1.6 % (0.0-6.0); HEMATOCRIT 44.1 % (38.2-49.6); HEMOGLOBIN 13.8 g/dL (14.0-18.0); LYMPHOCYTES # (AUTO) 1.3 (1.0-3.2); LYMPHOCYTES % 11.2 % (18.0-39.1); MEAN CORPUSCULAR HEMOGLOBIN 29.4 pg (28-32); MEAN CORPUSCULAR HGB CONC 31.3 g/dL (31-35); MONOCYTES # (AUTO) 0.9 (0.2-0.8); NEUTROPHILS # (AUTO) 9.1 (2.1-6.9); NEUTROPHILS % 77.9 % (38.7-80.0); PLATELET COUNT 331 x10e3/uL (140-360); RED BLOOD COUNT 4.69 x10e6/uL (4.3-5.7); RED CELL DISTRIBUTION WIDTH 12.6 % (11.7-14.4)
[2020-09-05] VITALS (8 sets, daily range): BP systolic 107–163; BP diastolic 69–99
[2020-09-05] MEDS: ALBUTEROL/IPRATROPIUM 3 ML NEB NEB SCH ×4 (00:05→19:20)
[2020-09-05 00:07] LABS: LIPASE 49 U/L (8-78)
[2020-09-05 00:09] LABS: ALANINE AMINOTRANSFERASE 69 IU/L (0-55); ALBUMIN/GLOBULIN RATIO 0.8 (0.8-2.0); ALKALINE PHOSPHATASE 115 IU/L (40-150); ANION GAP 13.5 mmol/L (8-16); BLOOD UREA NITROGEN 12 mg/dL (7-26); BUN/CREATININE RATIO 12 (6-25); CALCIUM 9.1 mg/dL (8.4-10.2); CARBON DIOXIDE 36 mmol/L (22-29); CHLORIDE 93 mmol/L (98-107); CREATINE KINASE 40 IU/L (30-200); CREATININE, SERUM 0.99 mg/dL (0.72-1.25); EST GLOMERULAR FILTRATION RATE > 60 ML/MIN (60-); GLUCOSE 342 mg/dL (74-118); POTASSIUM 4.5 mmol/L (3.5-5.1); SODIUM 138 mmol/L (136-145)
[2020-09-05] MEDS ORDERED: ASPIRIN 81 MG CHEW TAB PO ONE (02:45)
[2020-09-05] MEDS ORDERED: FUROSEMIDE INJ 10 MG/ML 4 ML VIAL IV ONE (03:15)
[2020-09-05 03:27] LABS: CREATINE KINASE MB 1.4 ng/mL (0-5.0)
[2020-09-05] MEDS ORDERED: CHLORDIAZEPOXIDE HCL 25 MG CAP PO ONE (08:45)
[2020-09-05] MEDS ORDERED: ALBUTEROL/IPRATROPIUM 3 ML NEB NEB ONE (08:45)
[2020-09-05] MEDS ORDERED: ALBUTEROL/IPRATROPIUM 3 ML NEB NEB PRN (08:45)
[2020-09-05] MEDS ORDERED: POTASSIUM CHLORIDE 10MEQ EA PO ONE (08:45)
[2020-09-05] MEDS ORDERED: ASPIRIN 81 MG ENTERIC COATED PO ONE (08:54)
[2020-09-05] MEDS ORDERED: GABAPENTIN 100 MG CAP ONE ×2 (08:54→09:07)
[2020-09-05] MEDS ORDERED: POTASSIUM CHLORIDE 20 MEQ TAB CR PO ONE (08:54)
[2020-09-05] MEDS: DOXYCYCLINE HYCLATE TABLET 100 MG TAB PO SCH ×2 (08:56→17:00)
[2020-09-05] MEDS: ASPIRIN 81 MG CHEW TAB PO SCH (08:56)
[2020-09-05] MEDS: GABAPENTIN 300 MG CAP PO SCH ×2 (08:59→17:00)
[2020-09-05] MEDS: CEFTRIAXONE SOD 1 GM in SODIUM CHLORIDE 0.9% 50ML 50 ML IV SCH ×2 (09:00→21:00)
[2020-09-05] MEDS: FUROSEMIDE INJ 10 MG/ML 4 ML VIAL IV SCH (09:00)
[2020-09-05] MEDS ORDERED: DEXTROSE 50% SYRINGE 50 ML IV PRN (09:45)
[2020-09-05] MEDS: METHYLPREDNISOLONE SOD SUCC 40 MG/ML VIAL 1ML IV SCH ×2 (10:00→21:35)
[2020-09-05 10:02] LABS: ABG HCO3 41 mmol/L (22-26); ABG PCO2 71 mmHg (35-45); ABG PH 7.38 (7.35-7.45); ABG PO2 51 mmHg (80-105); ABG TCO2 44
[2020-09-05] MEDS ORDERED: INSULIN GLARGINE 100 UNITS/ML VIAL SQ ONE (10:30)
[2020-09-05] MEDS: INSULIN LISPRO 100 UNIT/1 ML 3ML VIAL SQ SCH ×3 (11:08→21:58)
[2020-09-05 11:55] LABS: CREATINE KINASE MB 1.3 ng/mL (0-5.0)
[2020-09-05 13:17] LABS: CLARITY,URINE CLEAR (CLEAR); COLOR,URINE YELLOW (YELLOW); KETONES,URINE NEGATIVE (NEGATIVE); LEUKOCYTE ESTERASE ,URINE NEGATIVE (NEGATIVE); NITRITE,URINE NEGATIVE (NEGATIVE); PROTEIN,URINE DIPSTICK NEGATIVE (NEGATIVE)
[2020-09-05 13:21] LABS: AMPHETAMINES SCREEN,URINE NEGATIVE (NEGATIVE); BENZODIAZEPINES SCREEN,URINE NEGATIVE (NEGATIVE); PHENCYCLIDINE SCREEN,URINE NEGATIVE (NEGATIVE)
[2020-09-05 13:40] LABS: BACTERIA,URINE RARE /HPF; MUCUS,URINE FEW (RARE); RBC,URINE 0-5 /HPF (0-5)
[2020-09-05] MEDS: CHLORDIAZEPOXIDE HCL 10 MG CAP PO SCH ×2 (14:00→23:38)
[2020-09-05] MEDS: FAMOTIDINE 20 MG TAB PO SCH (16:03)
[2020-09-05 16:48] LABS: ABG HCO3 47 mmol/L (22-26); ABG PH 7.33 (7.35-7.45); ABG PO2 108 mmHg (80-105); ABG TCO2 49
[2020-09-05 16:50] LABS: ABG PCO2 89 mmHg (35-45)
[2020-09-05 17:32] LABS: ABG PCO2 75 mmHg (35-45); ABG PH 7.38 (7.35-7.45)
[2020-09-05 17:33] LABS: ABG HCO3 45 mmol/L (22-26); ABG PO2 89 mmHg (80-105); ABG TCO2 48
[2020-09-05] MEDS ORDERED: ALBUTEROL0.63 MG/3 NEB (18:28)
[2020-09-05] MEDS ORDERED: ALBUTEROL/IPRATROPIUM 3 ML NEB ONE (19:43)
[2020-09-05] MEDS ORDERED: CEFTRIAXONE SOD 1 GM VIAL ONE (21:39)
[2020-09-05] MEDS ORDERED: INSULIN LISPRO 100 UNIT/1 ML 3ML VIAL SQ ONE (21:39)
[2020-09-05] MEDS ORDERED: METHYLPREDNISOLONE SOD SUCC 40 MG/ML VIAL 1ML ONE (21:39)
[2020-09-05] MEDS ORDERED: SODIUM CHLORIDE 0.9% 250ML 250 ML ONE (21:41)
[2020-09-05] MEDS ORDERED: SODIUM CHLORIDE 0.9% 50ML 50 ML ONE (21:41)
[2020-09-05] MEDS ORDERED: CHLORDIAZEPOXIDE HCL 25 MG CAP ONE (23:39)
[2020-09-05] MEDS ORDERED: CHLORDIAZEPOXIDE HCL 10 MG CAP ONE (23:46)
[2020-09-06] VITALS (25 sets, daily range): BP systolic 84–142; BP diastolic 58–95
[2020-09-06] MEDS ORDERED: ALBUTEROL/IPRATROPIUM 3 ML NEB ONE ×3 (00:18→07:19)
[2020-09-06] MEDS: ALBUTEROL/IPRATROPIUM 3 ML NEB NEB SCH ×6 (04:15→23:30)
[2020-09-06 04:46] LABS: BASOPHILS # (AUTO) 0.1 (0.0-0.1); BASOPHILS % 0.4 % (0.0-1.0); HEMATOCRIT 44.5 % (38.2-49.6); HEMOGLOBIN 13.8 g/dL (14.0-18.0); LYMPHOCYTES # (AUTO) 0.3 (1.0-3.2); LYMPHOCYTES % 2.4 % (18.0-39.1); MEAN CORPUSCULAR HEMOGLOBIN 29.6 pg (28-32); MEAN CORPUSCULAR VOLUME 95.3 fL (81-99); MONOCYTES # (AUTO) 0.1 (0.2-0.8); MONOCYTES % 0.7 % (4.4-11.3); NEUTROPHILS # (AUTO) 12.8 (2.1-6.9); NEUTROPHILS % 95.8 % (38.7-80.0); PLATELET COUNT 311 x10e3/uL (140-360); RED BLOOD COUNT 4.67 x10e6/uL (4.3-5.7); RED CELL DISTRIBUTION WIDTH 12.4 % (11.7-14.4)
[2020-09-06 05:02] LABS: ANION GAP 15.4 mmol/L (8-16); BLOOD UREA NITROGEN 20 mg/dL (7-26); BUN/CREATININE RATIO 20 (6-25); CARBON DIOXIDE 34 mmol/L (22-29); CHLORIDE 92 mmol/L (98-107); CREATININE, SERUM 1.01 mg/dL (0.72-1.25); EST GLOMERULAR FILTRATION RATE > 60 ML/MIN (60-); GLUCOSE 344 mg/dL (74-118); POTASSIUM 5.4 mmol/L (3.5-5.1); SODIUM 136 mmol/L (136-145)
[2020-09-06 05:34] LABS: CHOL/HDL RATIO 4.1 (3.9-4.7)
[2020-09-06] MEDS: CHLORDIAZEPOXIDE HCL 10 MG CAP PO SCH ×3 (05:56→19:21)
[2020-09-06] MEDS: INSULIN LISPRO 100 UNIT/1 ML 3ML VIAL SQ SCH ×6 (05:58→19:44)
[2020-09-06] MEDS ORDERED: CHLORDIAZEPOXIDE HCL 10 MG CAP ONE (06:01)
[2020-09-06] MEDS: ZIPRASIDONE 20 MG VIAL IM PRN ×3 (08:55→21:39)
[2020-09-06] MEDS ORDERED: LORAZEPAM INJ 2 MG/ML VIAL IV ONE (09:00)
[2020-09-06] MEDS ORDERED: POTASSIUM CHLORIDE 10MEQ EA PO SCH (09:00)
[2020-09-06] MEDS: FAMOTIDINE 20 MG TAB PO SCH ×2 (09:16→15:37)
[2020-09-06] MEDS: FUROSEMIDE INJ 10 MG/ML 4 ML VIAL IV SCH (09:16)
[2020-09-06] MEDS: METHYLPREDNISOLONE SOD SUCC 40 MG/ML VIAL 1ML IV SCH ×2 (09:17→19:21)
[2020-09-06] MEDS: CEFTRIAXONE SOD 1 GM in SODIUM CHLORIDE 0.9% 50ML 50 ML IV SCH ×2 (09:17→19:21)
[2020-09-06] MEDS: ASPIRIN 81 MG CHEW TAB PO SCH (09:17)
[2020-09-06] MEDS: DOXYCYCLINE HYCLATE TABLET 100 MG TAB PO SCH ×2 (09:17→16:12)
[2020-09-06] MEDS: LORAZEPAM INJ 2 MG/ML VIAL IV PRN ×3 (13:59→23:28)
[2020-09-06 14:23] LABS: ANION GAP 11.2 mmol/L (8-16); BLOOD UREA NITROGEN 27 mg/dL (7-26); BUN/CREATININE RATIO 28 (6-25); CALCIUM 9.1 mg/dL (8.4-10.2); CARBON DIOXIDE 36 mmol/L (22-29); CHLORIDE 94 mmol/L (98-107); CREATININE, SERUM 0.96 mg/dL (0.72-1.25); EST GLOMERULAR FILTRATION RATE > 60 ML/MIN (60-); GLUCOSE 231 mg/dL (74-118); POTASSIUM 5.2 mmol/L (3.5-5.1); SODIUM 136 mmol/L (136-145)
[2020-09-06] MEDS: GABAPENTIN 300 MG CAP PO SCH ×2 (15:00→19:21)
[2020-09-06] MEDS: ENOXAPARIN SOD INJ 40 MG/0.4 ML SYR SC SCH (16:13)
[2020-09-06] MEDS: ATORVASTATIN 10 MG TAB PO SCH (19:21)
[2020-09-06] MEDS: INSULIN GLARGINE 100 UNITS/ML VIAL SQ SCH (19:46)
[2020-09-07] VITALS (26 sets, daily range): BP systolic 98–125; BP diastolic 59–81
[2020-09-07] MEDS: ALBUTEROL/IPRATROPIUM 3 ML NEB NEB SCH ×6 (03:00→23:10)
[2020-09-07] MEDS: ZIPRASIDONE 20 MG VIAL IM PRN ×3 (03:04→20:30)
[2020-09-07] MEDS: LORAZEPAM INJ 2 MG/ML VIAL IV PRN ×4 (03:37→23:55)
[2020-09-07] MEDS: CHLORDIAZEPOXIDE HCL 10 MG CAP PO SCH ×3 (06:27→20:38)
[2020-09-07 06:36] LABS: BASOPHILS % 0.2 % (0.0-1.0); HEMATOCRIT 44.5 % (38.2-49.6); HEMOGLOBIN 13.9 g/dL (14.0-18.0); LYMPHOCYTES # (AUTO) 0.9 (1.0-3.2); LYMPHOCYTES % 6.2 % (18.0-39.1); MEAN CORPUSCULAR HEMOGLOBIN 29.1 pg (28-32); MEAN CORPUSCULAR HGB CONC 31.2 g/dL (31-35); MEAN CORPUSCULAR VOLUME 93.3 fL (81-99); MONOCYTES # (AUTO) 0.6 (0.2-0.8); MONOCYTES % 4.1 % (4.4-11.3); NEUTROPHILS # (AUTO) 12.9 (2.1-6.9); PLATELET COUNT 296 x10e3/uL (140-360); RED BLOOD COUNT 4.77 x10e6/uL (4.3-5.7); RED CELL DISTRIBUTION WIDTH 12.4 % (11.7-14.4)
[2020-09-07 07:12] LABS: ALANINE AMINOTRANSFERASE 38 IU/L (0-55); ALBUMIN 2.7 g/dL (3.5-5.0); ALBUMIN/GLOBULIN RATIO 0.7 (0.8-2.0); ALKALINE PHOSPHATASE 95 IU/L (40-150); ANION GAP 13.7 mmol/L (8-16); BLOOD UREA NITROGEN 31 mg/dL (7-26); BUN/CREATININE RATIO 36 (6-25); CALCIUM 8.8 mg/dL (8.4-10.2); CARBON DIOXIDE 37 mmol/L (22-29); CHLORIDE 95 mmol/L (98-107); CREATININE, SERUM 0.86 mg/dL (0.72-1.25); EST GLOMERULAR FILTRATION RATE > 60 ML/MIN (60-); GLUCOSE 203 mg/dL (74-118); POTASSIUM 4.7 mmol/L (3.5-5.1); SODIUM 141 mmol/L (136-145)
[2020-09-07] MEDS: FAMOTIDINE 20 MG TAB PO SCH ×2 (07:37→16:30)
[2020-09-07] MEDS: FUROSEMIDE INJ 10 MG/ML 4 ML VIAL IV SCH (07:52)
[2020-09-07] MEDS: INSULIN LISPRO 100 UNIT/1 ML 3ML VIAL SQ SCH ×7 (08:04→20:38)
[2020-09-07] MEDS: CEFTRIAXONE SOD 1 GM in SODIUM CHLORIDE 0.9% 50ML 50 ML IV SCH ×2 (08:21→20:36)
[2020-09-07] MEDS: METHYLPREDNISOLONE SOD SUCC 40 MG/ML VIAL 1ML IV SCH ×2 (08:22→20:36)
[2020-09-07] MEDS: DOXYCYCLINE HYCLATE TABLET 100 MG TAB PO SCH ×2 (09:00→17:00)
[2020-09-07] MEDS: ASPIRIN 81 MG CHEW TAB PO SCH (09:00)
[2020-09-07] MEDS: GABAPENTIN 300 MG CAP PO SCH ×3 (09:00→20:36)
[2020-09-07] MEDS: ENOXAPARIN SOD INJ 40 MG/0.4 ML SYR SC SCH (17:09)
[2020-09-07] MEDS: ATORVASTATIN 10 MG TAB PO SCH (20:36)
[2020-09-07] MEDS: INSULIN GLARGINE 100 UNITS/ML VIAL SQ SCH (20:38)
[2020-09-08] VITALS (27 sets, daily range): BP systolic 86–142; BP diastolic 56–89
[2020-09-08] MEDS: ZIPRASIDONE 20 MG VIAL IM PRN ×4 (02:29→21:48)
[2020-09-08] MEDS: LORAZEPAM INJ 2 MG/ML VIAL IV PRN ×5 (03:42→23:27)
[2020-09-08] MEDS ORDERED: SODIUM CHLORIDE 0.9% 500ML 500 ML ONE (03:46)
[2020-09-08] MEDS: ALBUTEROL/IPRATROPIUM 3 ML NEB NEB SCH ×6 (04:00→23:05)
[2020-09-08] MEDS: CHLORDIAZEPOXIDE HCL 10 MG CAP PO SCH ×3 (06:02→19:55)
[2020-09-08 06:12] LABS: CLARITY,URINE CLOUDY (CLEAR); COLOR,URINE AMBER (YELLOW); KETONES,URINE NEGATIVE (NEGATIVE); LEUKOCYTE ESTERASE ,URINE NEGATIVE (NEGATIVE); NITRITE,URINE NEGATIVE (NEGATIVE); PROTEIN,URINE DIPSTICK >=300 (NEGATIVE); URINE UROBILINOGEN 0.2 mg/dL (0.2 - 1)
[2020-09-08 06:55] LABS: BACTERIA,URINE FEW /HPF; EPITHELIAL CELLS,URINE FEW /LPF; RBC,URINE >50 /HPF (0-5); WBC,URINE (MAN) 0-5 /HPF (0-5)
[2020-09-08 07:21] LABS: BASOPHILS # (AUTO) 0.1 (0.0-0.1); BASOPHILS % 0.5 % (0.0-1.0); EOSINOPHILS % 0.2 % (0.0-6.0); HEMOGLOBIN 14.1 g/dL (14.0-18.0); LYMPHOCYTES # (AUTO) 0.9 (1.0-3.2); LYMPHOCYTES % 9.2 % (18.0-39.1); MEAN CORPUSCULAR HEMOGLOBIN 29.2 pg (28-32); MEAN CORPUSCULAR HGB CONC 30.7 g/dL (31-35); MEAN CORPUSCULAR VOLUME 95.2 fL (81-99); MONOCYTES # (AUTO) 0.9 (0.2-0.8); MONOCYTES % 9.4 % (4.4-11.3); NEUTROPHILS # (AUTO) 7.8 (2.1-6.9); NEUTROPHILS % 80.2 % (38.7-80.0); PLATELET COUNT 302 x10e3/uL (140-360); RED BLOOD COUNT 4.83 x10e6/uL (4.3-5.7); RED CELL DISTRIBUTION WIDTH 12.8 % (11.7-14.4)
[2020-09-08] MEDS: FAMOTIDINE 20 MG TAB PO SCH ×2 (07:30→14:36)
[2020-09-08] MEDS: INSULIN LISPRO 100 UNIT/1 ML 3ML VIAL SQ SCH ×7 (07:30→21:14)
[2020-09-08] MEDS: GABAPENTIN 300 MG CAP PO SCH ×3 (07:33→19:55)
[2020-09-08] MEDS: DOXYCYCLINE HYCLATE TABLET 100 MG TAB PO SCH ×2 (07:33→14:36)
[2020-09-08] MEDS: ASPIRIN 81 MG CHEW TAB PO SCH (07:33)
[2020-09-08 07:42] LABS: ALANINE AMINOTRANSFERASE 29 IU/L (0-55); ALBUMIN 2.8 g/dL (3.5-5.0); ALBUMIN/GLOBULIN RATIO 0.7 (0.8-2.0); ALKALINE PHOSPHATASE 96 IU/L (40-150); ANION GAP 13.3 mmol/L (8-16); BLOOD UREA NITROGEN 38 mg/dL (7-26); BUN/CREATININE RATIO 42 (6-25); CALCIUM 9.1 mg/dL (8.4-10.2); CARBON DIOXIDE 38 mmol/L (22-29); CHLORIDE 96 mmol/L (98-107); CREATININE, SERUM 0.91 mg/dL (0.72-1.25); EST GLOMERULAR FILTRATION RATE > 60 ML/MIN (60-); GLUCOSE 143 mg/dL (74-118); POTASSIUM 4.3 mmol/L (3.5-5.1); SODIUM 143 mmol/L (136-145)
[2020-09-08] MEDS: CEFTRIAXONE SOD 1 GM in SODIUM CHLORIDE 0.9% 50ML 50 ML IV SCH ×2 (08:23→19:54)
[2020-09-08] MEDS: METHYLPREDNISOLONE SOD SUCC 40 MG/ML VIAL 1ML IV SCH (08:23)
[2020-09-08] MEDS: FUROSEMIDE INJ 10 MG/ML 4 ML VIAL IV SCH (08:23)
[2020-09-08] MEDS: DEXTROSE 5%/0.9% SOD CHL 1,000 ML IV SCH ×2 (13:21→19:54)
[2020-09-08] MEDS: ENOXAPARIN SOD INJ 40 MG/0.4 ML SYR SC SCH (16:39)
[2020-09-08] MEDS: ATORVASTATIN 10 MG TAB PO SCH (19:54)
[2020-09-08] MEDS: NICOTINE 21 MG/EA PATCH TOP PRN (19:55)
[2020-09-08] MEDS ORDERED: INSULIN GLARGINE 100 UNITS/ML VIAL SQ SCH (21:00)
[2020-09-09] VITALS (26 sets, daily range): BP systolic 97–137; BP diastolic 50–91
[2020-09-09] MEDS: ALBUTEROL/IPRATROPIUM 3 ML NEB NEB SCH ×6 (03:30→23:15)
[2020-09-09] MEDS: LORAZEPAM INJ 2 MG/ML VIAL IV PRN ×2 (03:39→21:29)
[2020-09-09] MEDS: DEXTROSE 5%/0.9% SOD CHL 1,000 ML IV SCH ×3 (03:39→19:37)
[2020-09-09] MEDS: ZIPRASIDONE 20 MG VIAL IM PRN ×2 (05:02→21:30)
[2020-09-09 05:10] LABS: BASOPHILS % 0.6 % (0.0-1.0); EOSINOPHILS # (AUTO) 0.1 (0.0-0.4); EOSINOPHILS % 0.9 % (0.0-6.0); HEMATOCRIT 43.5 % (38.2-49.6); LYMPHOCYTES # (AUTO) 0.8 (1.0-3.2); MEAN CORPUSCULAR HEMOGLOBIN 29.1 pg (28-32); MEAN CORPUSCULAR HGB CONC 29.9 g/dL (31-35); MEAN CORPUSCULAR VOLUME 97.3 fL (81-99); MONOCYTES # (AUTO) 0.9 (0.2-0.8); MONOCYTES % 14.1 % (4.4-11.3); NEUTROPHILS # (AUTO) 4.6 (2.1-6.9); NEUTROPHILS % 72.2 % (38.7-80.0); PLATELET COUNT 272 x10e3/uL (140-360); RED BLOOD COUNT 4.47 x10e6/uL (4.3-5.7); RED CELL DISTRIBUTION WIDTH 12.6 % (11.7-14.4)
[2020-09-09 05:35] LABS: ANION GAP 13.1 mmol/L (8-16); BLOOD UREA NITROGEN 28 mg/dL (7-26); BUN/CREATININE RATIO 35 (6-25); CALCIUM 8.5 mg/dL (8.4-10.2); CARBON DIOXIDE 38 mmol/L (22-29); CHLORIDE 100 mmol/L (98-107); CREATININE, SERUM 0.79 mg/dL (0.72-1.25); EST GLOMERULAR FILTRATION RATE > 60 ML/MIN (60-); GLUCOSE 137 mg/dL (74-118); POTASSIUM 4.1 mmol/L (3.5-5.1); SODIUM 147 mmol/L (136-145)
[2020-09-09] MEDS: CHLORDIAZEPOXIDE HCL 10 MG CAP PO SCH ×3 (06:27→21:21)
[2020-09-09] MEDS: INSULIN LISPRO 100 UNIT/1 ML 3ML VIAL SQ SCH ×4 (07:30→20:37)
[2020-09-09] MEDS ORDERED: METHYLPREDNISOLONE SOD SUCC 40 MG/ML VIAL 1ML IV SCH (07:30)
[2020-09-09 08:24] LABS: ABG HCO3 41 mmol/L (22-26); ABG PCO2 78 mmHg (35-45); ABG PH 7.33 (7.35-7.45); ABG PO2 89 mmHg (80-105); ABG TCO2 44
[2020-09-09] MEDS: FUROSEMIDE INJ 10 MG/ML 4 ML VIAL IV SCH (09:50)
[2020-09-09] MEDS: CEFTRIAXONE SOD 1 GM in SODIUM CHLORIDE 0.9% 50ML 50 ML IV SCH ×2 (09:51→21:21)
[2020-09-09] MEDS: GABAPENTIN 300 MG CAP PO SCH ×3 (11:08→21:21)
[2020-09-09] MEDS: DOXYCYCLINE HYCLATE TABLET 100 MG TAB PO SCH ×2 (11:08→16:07)
[2020-09-09] MEDS: FAMOTIDINE 20 MG TAB PO SCH ×2 (11:08→16:06)
[2020-09-09] MEDS: ASPIRIN 81 MG CHEW TAB PO SCH (11:08)
[2020-09-09] MEDS: ENOXAPARIN SOD INJ 40 MG/0.4 ML SYR SC SCH (16:09)
[2020-09-09] MEDS: INSULIN GLARGINE 100 UNITS/ML VIAL SQ SCH (20:37)
[2020-09-09] MEDS: ATORVASTATIN 10 MG TAB PO SCH (21:21)
[2020-09-10] VITALS (24 sets, daily range): BP systolic 87–125; BP diastolic 54–93
[2020-09-10] MEDS: ALBUTEROL/IPRATROPIUM 3 ML NEB NEB SCH ×6 (03:10→22:25)
[2020-09-10 04:46] LABS: BASOPHILS # (AUTO) 0.1 (0.0-0.1); EOSINOPHILS # (AUTO) 0.2 (0.0-0.4); EOSINOPHILS % 3.3 % (0.0-6.0); HEMOGLOBIN 11.7 g/dL (14.0-18.0); LYMPHOCYTES # (AUTO) 0.9 (1.0-3.2); LYMPHOCYTES % 13.1 % (18.0-39.1); MEAN CORPUSCULAR HEMOGLOBIN 28.9 pg (28-32); MEAN CORPUSCULAR HGB CONC 29.3 g/dL (31-35); MEAN CORPUSCULAR VOLUME 98.8 fL (81-99); MONOCYTES # (AUTO) 0.9 (0.2-0.8); MONOCYTES % 12.4 % (4.4-11.3); NEUTROPHILS # (AUTO) 4.9 (2.1-6.9); NEUTROPHILS % 69.9 % (38.7-80.0); PLATELET COUNT 242 x10e3/uL (140-360); RED BLOOD COUNT 4.05 x10e6/uL (4.3-5.7); RED CELL DISTRIBUTION WIDTH 12.9 % (11.7-14.4)
[2020-09-10 05:05] LABS: ANION GAP 11.2 mmol/L (8-16); BLOOD UREA NITROGEN 17 mg/dL (7-26); BUN/CREATININE RATIO 21 (6-25); CARBON DIOXIDE 36 mmol/L (22-29); CHLORIDE 100 mmol/L (98-107); CREATININE, SERUM 0.82 mg/dL (0.72-1.25); EST GLOMERULAR FILTRATION RATE > 60 ML/MIN (60-); GLUCOSE 243 mg/dL (74-118); POTASSIUM 4.2 mmol/L (3.5-5.1); SODIUM 143 mmol/L (136-145)
[2020-09-10] MEDS: DEXTROSE 5%/0.9% SOD CHL 1,000 ML IV SCH ×2 (05:30→20:14)
[2020-09-10] MEDS: CHLORDIAZEPOXIDE HCL 10 MG CAP PO SCH ×3 (06:10→21:10)
[2020-09-10] MEDS: FAMOTIDINE 20 MG TAB PO SCH ×2 (07:35→17:35)
[2020-09-10] MEDS: FUROSEMIDE INJ 10 MG/ML 4 ML VIAL IV SCH (08:34)
[2020-09-10] MEDS: DOXYCYCLINE HYCLATE TABLET 100 MG TAB PO SCH ×2 (08:35→17:35)
[2020-09-10] MEDS: CEFTRIAXONE SOD 1 GM in SODIUM CHLORIDE 0.9% 50ML 50 ML IV SCH ×2 (08:35→20:14)
[2020-09-10] MEDS: ASPIRIN 81 MG CHEW TAB PO SCH (08:35)
[2020-09-10] MEDS: GABAPENTIN 300 MG CAP PO SCH ×3 (08:35→20:14)
[2020-09-10] MEDS: INSULIN LISPRO 100 UNIT/1 ML 3ML VIAL SQ SCH ×4 (08:38→20:17)
[2020-09-10] MEDS ORDERED: MAGNESIUM/ALUMINUM/SIMETHICONE 30 ML UDC PO PRN (09:15)
[2020-09-10] MEDS: NICOTINE 21 MG/EA PATCH TOP PRN (15:41)
[2020-09-10] MEDS: LORAZEPAM INJ 2 MG/ML VIAL IV PRN (16:39)
[2020-09-10] MEDS: ENOXAPARIN SOD INJ 40 MG/0.4 ML SYR SC SCH (17:00)
[2020-09-10] MEDS: ATORVASTATIN 10 MG TAB PO SCH (20:14)
[2020-09-10] MEDS: INSULIN GLARGINE 100 UNITS/ML VIAL SQ SCH (20:17)
[2020-09-11] VITALS (24 sets, daily range): BP systolic 85–131; BP diastolic 54–74
[2020-09-11] MEDS: ZIPRASIDONE 20 MG VIAL IM PRN ×3 (00:02→12:58)
[2020-09-11] MEDS: LORAZEPAM INJ 2 MG/ML VIAL IV PRN ×3 (00:16→12:57)
[2020-09-11] MEDS: ALBUTEROL/IPRATROPIUM 3 ML NEB NEB SCH ×6 (02:50→23:20)
[2020-09-11 04:52] LABS: BASOPHILS # (AUTO) 0.1 (0.0-0.1); BASOPHILS % 0.7 % (0.0-1.0); EOSINOPHILS # (AUTO) 0.2 (0.0-0.4); EOSINOPHILS % 2.9 % (0.0-6.0); HEMATOCRIT 39.2 % (38.2-49.6); HEMOGLOBIN 12.2 g/dL (14.0-18.0); LYMPHOCYTES # (AUTO) 0.8 (1.0-3.2); LYMPHOCYTES % 10.8 % (18.0-39.1); MEAN CORPUSCULAR HEMOGLOBIN 29.7 pg (28-32); MEAN CORPUSCULAR HGB CONC 31.1 g/dL (31-35); MEAN CORPUSCULAR VOLUME 95.4 fL (81-99); MONOCYTES # (AUTO) 0.8 (0.2-0.8); MONOCYTES % 11.1 % (4.4-11.3); NEUTROPHILS # (AUTO) 5.6 (2.1-6.9); NEUTROPHILS % 74.1 % (38.7-80.0); PLATELET COUNT 246 x10e3/uL (140-360); RED BLOOD COUNT 4.11 x10e6/uL (4.3-5.7); RED CELL DISTRIBUTION WIDTH 12.8 % (11.7-14.4)
[2020-09-11 05:21] LABS: ANION GAP 10.4 mmol/L (8-16); BLOOD UREA NITROGEN 16 mg/dL (7-26); BUN/CREATININE RATIO 22 (6-25); CALCIUM 8.3 mg/dL (8.4-10.2); CARBON DIOXIDE 34 mmol/L (22-29); CHLORIDE 98 mmol/L (98-107); CREATININE, SERUM 0.74 mg/dL (0.72-1.25); EST GLOMERULAR FILTRATION RATE > 60 ML/MIN (60-); GLUCOSE 143 mg/dL (74-118); POTASSIUM 4.4 mmol/L (3.5-5.1); SODIUM 138 mmol/L (136-145)
[2020-09-11 05:58] LABS: CREATINE KINASE MB 1.6 ng/mL (0-5.0)
[2020-09-11] MEDS: CHLORDIAZEPOXIDE HCL 10 MG CAP PO SCH (06:28)
[2020-09-11] MEDS: FAMOTIDINE 20 MG TAB PO SCH ×2 (07:30→16:30)
[2020-09-11] MEDS: INSULIN LISPRO 100 UNIT/1 ML 3ML VIAL SQ SCH ×4 (07:30→21:43)
[2020-09-11] MEDS: QUETIAPINE FUMARATE 25 MG TAB PO SCH ×3 (09:00→21:00)
[2020-09-11] MEDS: GABAPENTIN 100 MG CAP PO SCH ×3 (09:00→21:37)
[2020-09-11] MEDS: CEFTRIAXONE SOD 1 GM in SODIUM CHLORIDE 0.9% 50ML 50 ML IV SCH ×2 (09:00→21:37)
[2020-09-11] MEDS: DOXYCYCLINE HYCLATE TABLET 100 MG TAB PO SCH ×2 (09:00→21:38)
[2020-09-11] MEDS: ASPIRIN 81 MG CHEW TAB PO SCH (09:00)
[2020-09-11] MEDS: ENOXAPARIN SOD INJ 40 MG/0.4 ML SYR SC SCH (16:44)
[2020-09-11] MEDS ORDERED: QUETIAPINE FUMARATE 25 MG TAB PO SCH (21:00)
[2020-09-11] MEDS: ATORVASTATIN 10 MG TAB PO SCH (21:37)
[2020-09-11] MEDS: INSULIN GLARGINE 100 UNITS/ML VIAL SQ SCH (21:44)
[2020-09-12] VITALS (17 sets, daily range): BP systolic 81–127; BP diastolic 52–75
[2020-09-12] MEDS: ALBUTEROL/IPRATROPIUM 3 ML NEB NEB SCH ×6 (02:30→23:35)
[2020-09-12] MEDS: LORAZEPAM INJ 2 MG/ML VIAL IV PRN ×2 (03:59→16:15)
[2020-09-12] MEDS: ZIPRASIDONE 20 MG VIAL IM PRN ×2 (03:59→15:41)
[2020-09-12] MEDS: CEFTRIAXONE SOD 1 GM in SODIUM CHLORIDE 0.9% 50ML 50 ML IV SCH ×2 (08:19→21:12)
[2020-09-12] MEDS: GABAPENTIN 100 MG CAP PO SCH ×3 (08:19→21:12)
[2020-09-12] MEDS: FAMOTIDINE 20 MG TAB PO SCH ×2 (08:19→15:33)
[2020-09-12] MEDS: ASPIRIN 81 MG CHEW TAB PO SCH (08:19)
[2020-09-12] MEDS: DOXYCYCLINE HYCLATE TABLET 100 MG TAB PO SCH ×2 (08:19→21:12)
[2020-09-12] MEDS: QUETIAPINE FUMARATE 25 MG TAB PO SCH ×3 (08:19→21:12)
[2020-09-12] MEDS: INSULIN LISPRO 100 UNIT/1 ML 3ML VIAL SQ SCH ×4 (09:05→21:45)
[2020-09-12] MEDS ORDERED: DEXTROSE 5%/0.9% SOD CHL 1,000 ML IV SCH (09:15)
[2020-09-12] MEDS ORDERED: SODIUM CHLORIDE 0.9% 500ML 500 ML IV ONE (09:30)
[2020-09-12] MEDS: SODIUM CHLORIDE 0.9% 1000ML 1,000 ML IV SCH ×2 (12:16→22:43)
[2020-09-12] MEDS ORDERED: CALCIUM CARBONATE 500 MG CHEWABLE TABS PO PRN (15:45)
[2020-09-12] MEDS: ENOXAPARIN SOD INJ 40 MG/0.4 ML SYR SC SCH (16:15)
[2020-09-12] MEDS: ATORVASTATIN 10 MG TAB PO SCH (21:12)
[2020-09-12] MEDS: INSULIN GLARGINE 100 UNITS/ML VIAL SQ SCH (21:45)
[2020-09-13] VITALS (7 sets, daily range): BP systolic 108–152; BP diastolic 63–75
[2020-09-13] MEDS: ALBUTEROL/IPRATROPIUM 3 ML NEB NEB SCH ×6 (02:35→22:55)
[2020-09-13 04:44] LABS: BASOPHILS # (AUTO) 0.1 (0.0-0.1); BASOPHILS % 0.9 % (0.0-1.0); EOSINOPHILS # (AUTO) 0.2 (0.0-0.4); EOSINOPHILS % 2.9 % (0.0-6.0); HEMOGLOBIN 11.7 g/dL (14.0-18.0); LYMPHOCYTES % 12.4 % (18.0-39.1); MEAN CORPUSCULAR VOLUME 96.5 fL (81-99); MONOCYTES # (AUTO) 1.1 (0.2-0.8); MONOCYTES % 14.2 % (4.4-11.3); NEUTROPHILS # (AUTO) 5.4 (2.1-6.9); NEUTROPHILS % 69.2 % (38.7-80.0); PLATELET COUNT 268 x10e3/uL (140-360); RED BLOOD COUNT 4.04 x10e6/uL (4.3-5.7); RED CELL DISTRIBUTION WIDTH 12.9 % (11.7-14.4)
[2020-09-13 05:10] LABS: ALANINE AMINOTRANSFERASE 33 IU/L (0-55); ALBUMIN 2.4 g/dL (3.5-5.0); ALBUMIN/GLOBULIN RATIO 0.8 (0.8-2.0); ALKALINE PHOSPHATASE 71 IU/L (40-150); ANION GAP 11.4 mmol/L (8-16); BLOOD UREA NITROGEN 16 mg/dL (7-26); BUN/CREATININE RATIO 23 (6-25); CALCIUM 8.3 mg/dL (8.4-10.2); CARBON DIOXIDE 35 mmol/L (22-29); CHLORIDE 99 mmol/L (98-107); CREATININE, SERUM 0.71 mg/dL (0.72-1.25); EST GLOMERULAR FILTRATION RATE > 60 ML/MIN (60-); GLUCOSE 125 mg/dL (74-118); POTASSIUM 4.4 mmol/L (3.5-5.1); SODIUM 141 mmol/L (136-145)
[2020-09-13] MEDS ORDERED: SODIUM CHLORIDE 0.9% 500ML 500 ML IV ONE (09:15)
[2020-09-13] MEDS: FAMOTIDINE 20 MG TAB PO SCH ×2 (09:21→17:38)
[2020-09-13] MEDS: GABAPENTIN 100 MG CAP PO SCH ×3 (09:22→20:54)
[2020-09-13] MEDS: CEFTRIAXONE SOD 1 GM in SODIUM CHLORIDE 0.9% 50ML 50 ML IV SCH ×2 (09:22→20:54)
[2020-09-13] MEDS: DOXYCYCLINE HYCLATE TABLET 100 MG TAB PO SCH ×2 (09:22→20:55)
[2020-09-13] MEDS: ASPIRIN 81 MG CHEW TAB PO SCH (09:22)
[2020-09-13] MEDS: QUETIAPINE FUMARATE 25 MG TAB PO SCH ×3 (09:22→20:54)
[2020-09-13] MEDS: INSULIN LISPRO 100 UNIT/1 ML 3ML VIAL SQ SCH ×4 (09:29→20:56)
[2020-09-13] MEDS: SODIUM CHLORIDE 0.9% 1000ML 1,000 ML IV SCH (09:42)
[2020-09-13] MEDS ORDERED: BISACODYL 10 MG SUPP PR PRN (10:00)
[2020-09-13] MEDS ORDERED: MAGNESIUM HYDROXIDE 30 ML UDC PO PRN (10:00)
[2020-09-13] MEDS ORDERED: MAGNESIUM HYDROXIDE 30 ML UDC PO ONE (10:45)
[2020-09-13] MEDS: BISACODYL 10 MG SUPP PR ONE ×2 (12:47→12:52)
[2020-09-13] MEDS: SENNA-S TABLET PO SCH ×2 (12:47→20:55)
[2020-09-13] MEDS: ENOXAPARIN SOD INJ 40 MG/0.4 ML SYR SC SCH (17:39)
[2020-09-13] MEDS: NICOTINE 21 MG/EA PATCH TOP PRN (20:33)
[2020-09-13] MEDS: ATORVASTATIN 10 MG TAB PO SCH (20:54)
[2020-09-13] MEDS: INSULIN GLARGINE 100 UNITS/ML VIAL SQ SCH (20:56)
[2020-09-14] VITALS (8 sets, daily range): BP systolic 102–118; BP diastolic 52–73
[2020-09-14] MEDS: ALBUTEROL/IPRATROPIUM 3 ML NEB NEB SCH ×6 (03:00→23:30)
[2020-09-14 05:27] LABS: BASOPHILS # (AUTO) 0.1 (0.0-0.1); EOSINOPHILS # (AUTO) 0.3 (0.0-0.4); EOSINOPHILS % 3.1 % (0.0-6.0); HEMATOCRIT 36.2 % (38.2-49.6); HEMOGLOBIN 11.1 g/dL (14.0-18.0); LYMPHOCYTES # (AUTO) 1.2 (1.0-3.2); LYMPHOCYTES % 14.4 % (18.0-39.1); MEAN CORPUSCULAR HEMOGLOBIN 29.4 pg (28-32); MEAN CORPUSCULAR HGB CONC 30.7 g/dL (31-35); MEAN CORPUSCULAR VOLUME 95.8 fL (81-99); MONOCYTES # (AUTO) 1.3 (0.2-0.8); MONOCYTES % 15.8 % (4.4-11.3); NEUTROPHILS # (AUTO) 5.3 (2.1-6.9); NEUTROPHILS % 65.3 % (38.7-80.0); PLATELET COUNT 289 x10e3/uL (140-360); RED BLOOD COUNT 3.78 x10e6/uL (4.3-5.7); RED CELL DISTRIBUTION WIDTH 12.9 % (11.7-14.4)
[2020-09-14 06:25] LABS: ALANINE AMINOTRANSFERASE 37 IU/L (0-55); ALBUMIN 2.5 g/dL (3.5-5.0); ALBUMIN/GLOBULIN RATIO 0.8 (0.8-2.0); ALKALINE PHOSPHATASE 69 IU/L (40-150); ANION GAP 11.5 mmol/L (8-16); BLOOD UREA NITROGEN 19 mg/dL (7-26); BUN/CREATININE RATIO 27 (6-25); CALCIUM 8.4 mg/dL (8.4-10.2); CARBON DIOXIDE 34 mmol/L (22-29); CHLORIDE 96 mmol/L (98-107); EST GLOMERULAR FILTRATION RATE > 60 ML/MIN (60-); GLUCOSE 197 mg/dL (74-118); POTASSIUM 4.5 mmol/L (3.5-5.1); SODIUM 137 mmol/L (136-145)
[2020-09-14] MEDS: INSULIN LISPRO 100 UNIT/1 ML 3ML VIAL SQ SCH ×4 (08:05→21:00)
[2020-09-14] MEDS: GABAPENTIN 100 MG CAP PO SCH ×3 (08:45→20:57)
[2020-09-14] MEDS: FAMOTIDINE 20 MG TAB PO SCH ×2 (08:45→17:52)
[2020-09-14] MEDS: ASPIRIN 81 MG CHEW TAB PO SCH (08:45)
[2020-09-14] MEDS: QUETIAPINE FUMARATE 25 MG TAB PO SCH ×3 (08:46→20:52)
[2020-09-14] MEDS: SENNA-S TABLET PO SCH ×2 (08:46→20:52)
[2020-09-14] MEDS: DOXYCYCLINE HYCLATE TABLET 100 MG TAB PO SCH ×2 (08:46→20:52)
[2020-09-14] MEDS: CEFTRIAXONE SOD 1 GM in SODIUM CHLORIDE 0.9% 50ML 50 ML IV SCH ×2 (08:54→20:52)
[2020-09-14] MEDS: ENOXAPARIN SOD INJ 40 MG/0.4 ML SYR SC SCH (17:52)
[2020-09-14] MEDS: ATORVASTATIN 10 MG TAB PO SCH (20:52)
[2020-09-14] MEDS: NICOTINE 21 MG/EA PATCH TOP PRN (21:40)
[2020-09-14] MEDS: INSULIN GLARGINE 100 UNITS/ML VIAL SQ SCH (23:19)
[2020-09-15] VITALS (8 sets, daily range): BP systolic 95–119; BP diastolic 59–89
[2020-09-15] MEDS: ALBUTEROL/IPRATROPIUM 3 ML NEB NEB SCH ×6 (04:05→23:05)
[2020-09-15 06:16] LABS: BASOPHILS # (AUTO) 0.1 (0.0-0.1); BASOPHILS % 1.2 % (0.0-1.0); EOSINOPHILS # (AUTO) 0.3 (0.0-0.4); EOSINOPHILS % 2.8 % (0.0-6.0); HEMATOCRIT 34.1 % (38.2-49.6); HEMOGLOBIN 10.5 g/dL (14.0-18.0); LYMPHOCYTES # (AUTO) 1.1 (1.0-3.2); LYMPHOCYTES % 12.1 % (18.0-39.1); MEAN CORPUSCULAR HEMOGLOBIN 29.3 pg (28-32); MEAN CORPUSCULAR HGB CONC 30.8 g/dL (31-35); MEAN CORPUSCULAR VOLUME 95.3 fL (81-99); MONOCYTES # (AUTO) 1.2 (0.2-0.8); MONOCYTES % 12.7 % (4.4-11.3); NEUTROPHILS # (AUTO) 6.6 (2.1-6.9); NEUTROPHILS % 70.6 % (38.7-80.0); PLATELET COUNT 302 x10e3/uL (140-360); RED BLOOD COUNT 3.58 x10e6/uL (4.3-5.7)
[2020-09-15 06:36] LABS: ALANINE AMINOTRANSFERASE 33 IU/L (0-55); ALBUMIN 2.5 g/dL (3.5-5.0); ALBUMIN/GLOBULIN RATIO 0.8 (0.8-2.0); ALKALINE PHOSPHATASE 82 IU/L (40-150); ANION GAP 11.4 mmol/L (8-16); BLOOD UREA NITROGEN 19 mg/dL (7-26); BUN/CREATININE RATIO 24 (6-25); CALCIUM 8.3 mg/dL (8.4-10.2); CARBON DIOXIDE 35 mmol/L (22-29); CHLORIDE 94 mmol/L (98-107); CREATININE, SERUM 0.78 mg/dL (0.72-1.25); EST GLOMERULAR FILTRATION RATE > 60 ML/MIN (60-); GLUCOSE 223 mg/dL (74-118); POTASSIUM 4.4 mmol/L (3.5-5.1); SODIUM 136 mmol/L (136-145)
[2020-09-15] MEDS: INSULIN LISPRO 100 UNIT/1 ML 3ML VIAL SQ SCH ×4 (08:22→21:00)
[2020-09-15] MEDS: FAMOTIDINE 20 MG TAB PO SCH ×2 (09:40→17:17)
[2020-09-15] MEDS: SENNA-S TABLET PO SCH ×2 (09:41→23:09)
[2020-09-15] MEDS: ASPIRIN 81 MG CHEW TAB PO SCH (09:41)
[2020-09-15] MEDS: GABAPENTIN 100 MG CAP PO SCH (09:41)
[2020-09-15] MEDS: DOXYCYCLINE HYCLATE TABLET 100 MG TAB PO SCH ×2 (09:42→23:09)
[2020-09-15] MEDS: QUETIAPINE FUMARATE 25 MG TAB PO SCH ×3 (09:42→23:09)
[2020-09-15] MEDS: GABAPENTIN 300 MG CAP PO SCH ×2 (17:16→23:09)
[2020-09-15] MEDS: ENOXAPARIN SOD INJ 40 MG/0.4 ML SYR SC SCH (17:17)
[2020-09-15] MEDS: NICOTINE 21 MG/EA PATCH TOP PRN (21:45)
[2020-09-15] MEDS: ATORVASTATIN 10 MG TAB PO SCH (23:09)
[2020-09-15] MEDS: INSULIN GLARGINE 100 UNITS/ML VIAL SQ SCH (23:29)
[2020-09-16] VITALS (8 sets, daily range): BP systolic 94–131; BP diastolic 51–86
[2020-09-16] MEDS: ALBUTEROL/IPRATROPIUM 3 ML NEB NEB SCH ×4 (03:00→19:36)
[2020-09-16] MEDS: FAMOTIDINE 20 MG TAB PO SCH ×2 (07:30→15:59)
[2020-09-16] MEDS: INSULIN LISPRO 100 UNIT/1 ML 3ML VIAL SQ SCH ×4 (07:30→21:00)
[2020-09-16] MEDS: QUETIAPINE FUMARATE 25 MG TAB PO SCH ×3 (09:00→19:54)
[2020-09-16] MEDS: ASPIRIN 81 MG CHEW TAB PO SCH (09:00)
[2020-09-16] MEDS: DOXYCYCLINE HYCLATE TABLET 100 MG TAB PO SCH ×2 (09:00→19:54)
[2020-09-16] MEDS: GABAPENTIN 300 MG CAP PO SCH ×3 (09:00→19:54)
[2020-09-16] MEDS: SENNA-S TABLET PO SCH ×2 (09:00→19:54)
[2020-09-16] MEDS: ATORVASTATIN 10 MG TAB PO SCH (19:54)
[2020-09-16] MEDS: NICOTINE 21 MG/EA PATCH TOP PRN (20:27)
[2020-09-16] MEDS: INSULIN GLARGINE 100 UNITS/ML VIAL SQ SCH (21:00)
[2020-09-16] MEDS: LORAZEPAM INJ 2 MG/ML VIAL IV PRN (22:30)
[2020-09-17] VITALS (8 sets, daily range): BP systolic 95–114; BP diastolic 59–79
[2020-09-17] MEDS: ALBUTEROL/IPRATROPIUM 3 ML NEB NEB SCH ×4 (01:15→19:20)
[2020-09-17] MEDS: SENNA-S TABLET PO SCH ×2 (08:23→20:47)
[2020-09-17] MEDS: ASPIRIN 81 MG CHEW TAB PO SCH (08:23)
[2020-09-17] MEDS: GABAPENTIN 300 MG CAP PO SCH ×3 (08:23→20:47)
[2020-09-17] MEDS: FAMOTIDINE 20 MG TAB PO SCH ×2 (08:23→15:45)
[2020-09-17] MEDS: QUETIAPINE FUMARATE 25 MG TAB PO SCH ×3 (08:23→20:48)
[2020-09-17] MEDS: DOXYCYCLINE HYCLATE TABLET 100 MG TAB PO SCH ×2 (08:24→20:48)
[2020-09-17] MEDS: INSULIN LISPRO 100 UNIT/1 ML 3ML VIAL SQ SCH ×4 (08:28→20:48)
[2020-09-17] MEDS: LISINOPRIL 2.5 MG TAB PO SCH (13:39)
[2020-09-17] MEDS: ATORVASTATIN 10 MG TAB PO SCH (20:47)
[2020-09-17] MEDS: NICOTINE 21 MG/EA PATCH TOP PRN (20:48)
[2020-09-17] MEDS: INSULIN GLARGINE 100 UNITS/ML VIAL SQ SCH (20:48)
[2020-09-18] VITALS (7 sets, daily range): BP systolic 95–111; BP diastolic 55–66
[2020-09-18] MEDS: ALBUTEROL/IPRATROPIUM 3 ML NEB NEB SCH ×4 (00:25→19:10)
[2020-09-18 05:36] LABS: BASOPHILS # (AUTO) 0.1 (0.0-0.1); BASOPHILS % 1.4 % (0.0-1.0); EOSINOPHILS # (AUTO) 0.2 (0.0-0.4); EOSINOPHILS % 3.1 % (0.0-6.0); HEMATOCRIT 34.7 % (38.2-49.6); HEMOGLOBIN 10.5 g/dL (14.0-18.0); LYMPHOCYTES # (AUTO) 1.4 (1.0-3.2); LYMPHOCYTES % 17.4 % (18.0-39.1); MEAN CORPUSCULAR HEMOGLOBIN 29.2 pg (28-32); MEAN CORPUSCULAR HGB CONC 30.3 g/dL (31-35); MEAN CORPUSCULAR VOLUME 96.7 fL (81-99); MONOCYTES # (AUTO) 1.2 (0.2-0.8); MONOCYTES % 14.9 % (4.4-11.3); NEUTROPHILS # (AUTO) 4.9 (2.1-6.9); NEUTROPHILS % 62.8 % (38.7-80.0); PLATELET COUNT 334 x10e3/uL (140-360); RED BLOOD COUNT 3.59 x10e6/uL (4.3-5.7); RED CELL DISTRIBUTION WIDTH 13.2 % (11.7-14.4)
[2020-09-18 06:04] LABS: ANION GAP 10.5 mmol/L (8-16); BLOOD UREA NITROGEN 24 mg/dL (7-26); BUN/CREATININE RATIO 32 (6-25); CALCIUM 8.8 mg/dL (8.4-10.2); CARBON DIOXIDE 35 mmol/L (22-29); CHLORIDE 98 mmol/L (98-107); CREATININE, SERUM 0.74 mg/dL (0.72-1.25); EST GLOMERULAR FILTRATION RATE > 60 ML/MIN (60-); GLUCOSE 127 mg/dL (74-118); POTASSIUM 4.5 mmol/L (3.5-5.1); SODIUM 139 mmol/L (136-145)
[2020-09-18] MEDS: INSULIN LISPRO 100 UNIT/1 ML 3ML VIAL SQ SCH ×4 (07:30→21:44)
[2020-09-18] MEDS: ASPIRIN 81 MG CHEW TAB PO SCH (09:37)
[2020-09-18] MEDS: FAMOTIDINE 20 MG TAB PO SCH ×2 (09:37→17:00)
[2020-09-18] MEDS: GABAPENTIN 300 MG CAP PO SCH ×2 (09:37→15:00)
[2020-09-18] MEDS: LISINOPRIL 2.5 MG TAB PO SCH (09:38)
[2020-09-18] MEDS: QUETIAPINE FUMARATE 25 MG TAB PO SCH ×3 (09:38→21:52)
[2020-09-18] MEDS: METOPROLOL SUCCINATE 25 MG TAB XL PO SCH (09:38)
[2020-09-18] MEDS: SENNA-S TABLET PO SCH ×2 (17:00→21:53)
[2020-09-18 17:15] LABS: CREATINE KINASE MB 1.5 ng/mL (0-5.0)
[2020-09-18] MEDS: LORAZEPAM INJ 2 MG/ML VIAL IV PRN ×2 (18:40→23:36)
[2020-09-18] MEDS ORDERED: GABAPENTIN 300 MG CAP PO SCH (21:00)
[2020-09-18] MEDS: INSULIN GLARGINE 100 UNITS/ML VIAL SQ SCH (21:44)
[2020-09-18] MEDS: ATORVASTATIN 10 MG TAB PO SCH (21:53)
[2020-09-18] MEDS: GABAPENTIN 100 MG CAP PO SCH (21:53)
[2020-09-18] MEDS: NICOTINE 21 MG/EA PATCH TOP PRN (23:46)
[2020-09-19] VITALS (7 sets, daily range): BP systolic 94–126; BP diastolic 57–78
[2020-09-19] MEDS: ALBUTEROL/IPRATROPIUM 3 ML NEB NEB SCH ×7 (01:05→23:05)
[2020-09-19] MEDS: ZIPRASIDONE 20 MG VIAL IM PRN (01:19)
[2020-09-19] MEDS: INSULIN LISPRO 100 UNIT/1 ML 3ML VIAL SQ SCH ×4 (08:30→22:00)
[2020-09-19] MEDS: FAMOTIDINE 20 MG TAB PO SCH ×2 (08:30→16:36)
[2020-09-19] MEDS: ASPIRIN 81 MG CHEW TAB PO SCH (08:30)
[2020-09-19] MEDS: GABAPENTIN 100 MG CAP PO SCH ×3 (08:30→22:00)
[2020-09-19] MEDS: METOPROLOL SUCCINATE 25 MG TAB XL PO SCH (08:30)
[2020-09-19] MEDS: QUETIAPINE FUMARATE 25 MG TAB PO SCH ×3 (08:30→22:00)
[2020-09-19] MEDS: SENNA-S TABLET PO SCH ×2 (08:30→22:00)
[2020-09-19] MEDS: LISINOPRIL 2.5 MG TAB PO SCH (09:00)
[2020-09-19] MEDS: DIVALPROEX SODIUM 250 MG TAB...DR PO SCH ×2 (09:00→22:00)
[2020-09-19 10:25] LABS: ABG PCO2 70 mmHg (35-45); ABG PH 7.36 (7.35-7.45); ABG PO2 87 mmHg (80-105)
[2020-09-19 10:26] LABS: ABG HCO3 41 mmol/L (22-26); ABG TCO2 43
[2020-09-19] MEDS: INSULIN GLARGINE 100 UNITS/ML VIAL SQ SCH (22:00)
[2020-09-19] MEDS: ATORVASTATIN 10 MG TAB PO SCH (22:00)
[2020-09-20] VITALS (8 sets, daily range): BP systolic 90–101; BP diastolic 44–69
[2020-09-20] MEDS: ALBUTEROL/IPRATROPIUM 3 ML NEB NEB SCH ×6 (03:30→19:20)
[2020-09-20] MEDS: INSULIN LISPRO 100 UNIT/1 ML 3ML VIAL SQ SCH ×4 (07:30→20:58)
[2020-09-20] MEDS: ASPIRIN 81 MG CHEW TAB PO SCH (08:06)
[2020-09-20] MEDS: FAMOTIDINE 20 MG TAB PO SCH ×2 (08:06→16:48)
[2020-09-20] MEDS: QUETIAPINE FUMARATE 25 MG TAB PO SCH (08:07)
[2020-09-20] MEDS: SENNA-S TABLET PO SCH ×2 (08:07→20:57)
[2020-09-20] MEDS: DIVALPROEX SODIUM 250 MG TAB...DR PO SCH ×2 (08:07→20:57)
[2020-09-20] MEDS: GABAPENTIN 100 MG CAP PO SCH (08:07)
[2020-09-20] MEDS: METOPROLOL SUCCINATE 25 MG TAB XL PO SCH (08:09)
[2020-09-20] MEDS: LISINOPRIL 2.5 MG TAB PO SCH (08:10)
[2020-09-20 08:48] LABS: ANION GAP 14.6 mmol/L (8-16); BLOOD UREA NITROGEN 18 mg/dL (7-26); BUN/CREATININE RATIO 24 (6-25); CALCIUM 8.5 mg/dL (8.4-10.2); CARBON DIOXIDE 33 mmol/L (22-29); CHLORIDE 95 mmol/L (98-107); CREATININE, SERUM 0.74 mg/dL (0.72-1.25); EST GLOMERULAR FILTRATION RATE > 60 ML/MIN (60-); GLUCOSE 177 mg/dL (74-118); POTASSIUM 4.6 mmol/L (3.5-5.1); SODIUM 138 mmol/L (136-145)
[2020-09-20] MEDS: METHADONE HCL 5 MG TAB PO SCH (17:07)
[2020-09-20] MEDS: ATORVASTATIN 10 MG TAB PO SCH (20:57)
[2020-09-20] MEDS: INSULIN GLARGINE 100 UNITS/ML VIAL SQ SCH (20:58)
[2020-09-20] MEDS: LORAZEPAM INJ 2 MG/ML VIAL IV PRN (22:30)
[2020-09-21] MEDS: ZIPRASIDONE 20 MG VIAL IM PRN ×2 (00:32→13:38)
[2020-09-21 01:26] VITALS: BP 105/67
[2020-09-21] MEDS: ALBUTEROL/IPRATROPIUM 3 ML NEB NEB SCH ×5 (03:00→19:30)
[2020-09-21 04:15] VITALS: BP 103/67
[2020-09-21] MEDS: INSULIN LISPRO 100 UNIT/1 ML 3ML VIAL SQ SCH ×4 (07:30→21:35)
[2020-09-21 08:02] VITALS: BP 126/69
[2020-09-21] MEDS: DIVALPROEX SODIUM 250 MG TAB...DR PO SCH ×2 (08:20→20:20)
[2020-09-21] MEDS: ASPIRIN 81 MG CHEW TAB PO SCH (08:20)
[2020-09-21] MEDS: METHADONE HCL 5 MG TAB PO SCH ×2 (08:20→18:26)
[2020-09-21] MEDS: FAMOTIDINE 20 MG TAB PO SCH ×2 (08:20→18:26)
[2020-09-21] MEDS: LISINOPRIL 2.5 MG TAB PO SCH (08:21)
[2020-09-21] MEDS: METOPROLOL SUCCINATE 25 MG TAB XL PO SCH (08:21)
[2020-09-21] MEDS: SENNA-S TABLET PO SCH ×2 (08:21→20:20)
[2020-09-21 09:21] VITALS: BP 126/69
[2020-09-21] MEDS: LORAZEPAM INJ 2 MG/ML VIAL IV PRN ×2 (11:07→14:00)
[2020-09-21 11:48] VITALS: BP 105/67
[2020-09-21] MEDS: QUETIAPINE FUMARATE 25 MG TAB PO PRN (16:00)
[2020-09-21] MEDS: ATORVASTATIN 10 MG TAB PO SCH (20:20)
[2020-09-21 20:47] VITALS: BP 108/65
[2020-09-22] VITALS (7 sets, daily range): BP systolic 84–124; BP diastolic 58–81
[2020-09-22] MEDS: ALBUTEROL/IPRATROPIUM 3 ML NEB NEB SCH ×5 (00:15→19:35)
[2020-09-22 05:05] LABS: BASOPHILS # (AUTO) 0.1 (0.0-0.1); EOSINOPHILS # (AUTO) 0.2 (0.0-0.4); EOSINOPHILS % 3.1 % (0.0-6.0); HEMATOCRIT 35.9 % (38.2-49.6); LYMPHOCYTES # (AUTO) 1.5 (1.0-3.2); MEAN CORPUSCULAR HGB CONC 30.6 g/dL (31-35); MEAN CORPUSCULAR VOLUME 94.7 fL (81-99); MONOCYTES # (AUTO) 0.8 (0.2-0.8); MONOCYTES % 11.3 % (4.4-11.3); NEUTROPHILS # (AUTO) 4.5 (2.1-6.9); NEUTROPHILS % 63.2 % (38.7-80.0); PLATELET COUNT 317 x10e3/uL (140-360); RED BLOOD COUNT 3.79 x10e6/uL (4.3-5.7); RED CELL DISTRIBUTION WIDTH 13.2 % (11.7-14.4)
[2020-09-22 05:29] LABS: ANION GAP 12.1 mmol/L (8-16); BLOOD UREA NITROGEN 28 mg/dL (7-26); BUN/CREATININE RATIO 33 (6-25); CALCIUM 8.6 mg/dL (8.4-10.2); CARBON DIOXIDE 31 mmol/L (22-29); CHLORIDE 96 mmol/L (98-107); CREATININE, SERUM 0.85 mg/dL (0.72-1.25); EST GLOMERULAR FILTRATION RATE > 60 ML/MIN (60-); GLUCOSE 158 mg/dL (74-118); POTASSIUM 5.1 mmol/L (3.5-5.1); SODIUM 134 mmol/L (136-145)
[2020-09-22] MEDS: INSULIN LISPRO 100 UNIT/1 ML 3ML VIAL SQ SCH ×4 (07:30→22:35)
[2020-09-22] MEDS: FAMOTIDINE 20 MG TAB PO SCH ×2 (09:16→16:27)
[2020-09-22] MEDS: DIVALPROEX SODIUM 250 MG TAB...DR PO SCH ×2 (09:17→20:43)
[2020-09-22] MEDS: SENNA-S TABLET PO SCH ×2 (09:17→20:43)
[2020-09-22] MEDS: METHADONE HCL 5 MG TAB PO SCH ×2 (09:17→16:29)
[2020-09-22] MEDS: ASPIRIN 81 MG CHEW TAB PO SCH (09:17)
[2020-09-22] MEDS: METOPROLOL SUCCINATE 25 MG TAB XL PO SCH (09:18)
[2020-09-22] MEDS: NICOTINE 21 MG/EA PATCH TOP PRN (10:11)
[2020-09-22] MEDS: ATORVASTATIN 10 MG TAB PO SCH (20:43)
[2020-09-23] VITALS (9 sets, daily range): BP systolic 100–140; BP diastolic 55–82
[2020-09-23] MEDS: INSULIN LISPRO 100 UNIT/1 ML 3ML VIAL SQ SCH ×4 (07:30→20:55)
[2020-09-23] MEDS: ALBUTEROL/IPRATROPIUM 3 ML NEB NEB SCH ×3 (07:40→19:35)
[2020-09-23] MEDS: SENNA-S TABLET PO SCH ×2 (08:43→21:00)
[2020-09-23] MEDS: METOPROLOL SUCCINATE 25 MG TAB XL PO SCH (08:43)
[2020-09-23] MEDS: ASPIRIN 81 MG CHEW TAB PO SCH (08:43)
[2020-09-23] MEDS: FAMOTIDINE 20 MG TAB PO SCH ×2 (08:43→17:17)
[2020-09-23] MEDS: DIVALPROEX SODIUM 250 MG TAB...DR PO SCH ×2 (08:43→21:00)
[2020-09-23] MEDS: METHADONE HCL 5 MG TAB PO SCH ×2 (08:43→17:17)
[2020-09-23] MEDS: ATORVASTATIN 10 MG TAB PO SCH (21:00)
[2020-09-24] VITALS (8 sets, daily range): BP systolic 96–118; BP diastolic 62–98
[2020-09-24] MEDS: QUETIAPINE FUMARATE 25 MG TAB PO PRN (00:59)
[2020-09-24] MEDS: ALBUTEROL/IPRATROPIUM 3 ML NEB NEB SCH ×3 (06:00→19:40)
[2020-09-24] MEDS: INSULIN LISPRO 100 UNIT/1 ML 3ML VIAL SQ SCH ×4 (07:30→21:10)
[2020-09-24] MEDS: DIVALPROEX SODIUM 250 MG TAB...DR PO SCH ×2 (08:42→20:31)
[2020-09-24] MEDS: ASPIRIN 81 MG CHEW TAB PO SCH (08:42)
[2020-09-24] MEDS: FAMOTIDINE 20 MG TAB PO SCH ×2 (08:42→17:19)
[2020-09-24] MEDS: SENNA-S TABLET PO SCH ×2 (08:43→20:31)
[2020-09-24] MEDS: METHADONE HCL 5 MG TAB PO SCH ×2 (08:43→17:17)
[2020-09-24] MEDS: METOPROLOL SUCCINATE 25 MG TAB XL PO SCH (08:43)
[2020-09-24 11:41] LABS: AMPHETAMINES SCREEN,URINE NEGATIVE (NEGATIVE); PHENCYCLIDINE SCREEN,URINE NEGATIVE (NEGATIVE)
[2020-09-24 11:43] LABS: BENZODIAZEPINES SCREEN,URINE POSITIVE (NEGATIVE)
[2020-09-24 12:40] LABS: ABG PH 7.37 (7.35-7.45)
[2020-09-24 12:41] LABS: ABG HCO3 38 mmol/L (22-26); ABG PCO2 67 mmHg (35-45); ABG PO2 114 mmHg (80-105); ABG TCO2 40
[2020-09-24] MEDS: ZIPRASIDONE 20 MG VIAL IM PRN (20:20)
[2020-09-24] MEDS: ATORVASTATIN 10 MG TAB PO SCH (20:31)
[2020-09-25] VITALS (8 sets, daily range): BP systolic 102–144; BP diastolic 66–77
[2020-09-25] MEDS: ALBUTEROL/IPRATROPIUM 3 ML NEB NEB SCH ×3 (06:00→19:10)
[2020-09-25] MEDS: INSULIN LISPRO 100 UNIT/1 ML 3ML VIAL SQ SCH ×4 (07:30→20:43)
[2020-09-25] MEDS: DIVALPROEX SODIUM 250 MG TAB...DR PO SCH ×2 (08:06→20:46)
[2020-09-25] MEDS: FAMOTIDINE 20 MG TAB PO SCH ×3 (08:06→17:33)
[2020-09-25] MEDS: ASPIRIN 81 MG CHEW TAB PO SCH (08:06)
[2020-09-25] MEDS: SENNA-S TABLET PO SCH ×2 (08:07→20:46)
[2020-09-25] MEDS: METHADONE HCL 5 MG TAB PO SCH ×3 (08:07→17:33)
[2020-09-25] MEDS: METOPROLOL SUCCINATE 25 MG TAB XL PO SCH (08:07)
[2020-09-25] MEDS ORDERED: ACETAZOLAMIDE 250 MG TAB PO ONE (10:30)
[2020-09-25] MEDS: ZIPRASIDONE 20 MG VIAL IM PRN (17:33)
[2020-09-25] MEDS: ATORVASTATIN 10 MG TAB PO SCH (20:46)
[2020-09-26 04:00] VITALS: BP 109/70
[2020-09-26 04:42] LABS: ANION GAP 12.5 mmol/L (8-16); BLOOD UREA NITROGEN 22 mg/dL (7-26); BUN/CREATININE RATIO 27 (6-25); CALCIUM 8.9 mg/dL (8.4-10.2); CARBON DIOXIDE 29 mmol/L (22-29); CHLORIDE 100 mmol/L (98-107); CREATININE, SERUM 0.83 mg/dL (0.72-1.25); EST GLOMERULAR FILTRATION RATE > 60 ML/MIN (60-); GLUCOSE 187 mg/dL (74-118); POTASSIUM 4.5 mmol/L (3.5-5.1); SODIUM 137 mmol/L (136-145)
[2020-09-26] MEDS: ALBUTEROL/IPRATROPIUM 3 ML NEB NEB SCH ×2 (06:59→13:11)
[2020-09-26 08:38] VITALS: BP 118/76
[2020-09-26] MEDS: METHADONE HCL 5 MG TAB PO SCH (08:44)
[2020-09-26] MEDS: QUETIAPINE FUMARATE 25 MG TAB PO PRN (08:44)
[2020-09-26] MEDS: INSULIN LISPRO 100 UNIT/1 ML 3ML VIAL SQ SCH (08:44)
[2020-09-26] MEDS: DIVALPROEX SODIUM 250 MG TAB...DR PO SCH (08:44)
[2020-09-26] MEDS: ASPIRIN 81 MG CHEW TAB PO SCH (08:44)
[2020-09-26] MEDS: SENNA-S TABLET PO SCH (08:44)
[2020-09-26] MEDS: FAMOTIDINE 20 MG TAB PO SCH (08:44)
[2020-09-26] MEDS: METOPROLOL SUCCINATE 25 MG TAB XL PO SCH (08:44)
[2020-09-26 08:59] VITALS: BP 118/76
[2020-09-26 12:38] VITALS: BP 115/62
== END 2020-09-26 14:15 | disposition home or self-care (01) | DRG 193 ==
LOC: ER 23:32 → UNDOADMOB 09-05 02:46 → ERHOLD 09-05 02:46 → INTOOBSV 09-05 13:13 → OBSVTOIN 09-05 13:13 → ERHOLD 09-05 13:13 → ICU 09-05 17:33 → MED/SURG2 09-13 00:07
PROVIDERS: ADMIT Internal Medicine; ATTEND Internal Medicine
DX: J18.9 Pneumonia, unspecified organism (principal); J96.22 Acute and chronic respiratory failure with hypercapnia; J96.21 Acute and chronic respiratory failure with hypoxia; F10.231 Alcohol dependence with withdrawal delirium; J44.1 Chronic obstructive pulmonary disease with (acute) exacerbation; J44.0 Chronic obstructive pulmonary disease with (acute) lower respiratory infection; N39.0 Urinary tract infection, site not specified; S37.39XA Other injury of urethra, initial encounter; I50.20 Unspecified systolic (congestive) heart failure; E11.65 Type 2 diabetes mellitus with hyperglycemia; E78.5 Hyperlipidemia, unspecified; Z88.5 Allergy status to narcotic agent; Z88.0 Allergy status to penicillin; F10.220 Alcohol dependence with intoxication, uncomplicated; Z79.82 Long term (current) use of aspirin; Z72.0 Tobacco use; F15.90 Other stimulant use, unspecified, uncomplicated; Z20.822 Contact with and (suspected) exposure to COVID-19; I11.0 Hypertensive heart disease with heart failure; G31.2 Degeneration of nervous system due to alcohol; Z86.73 Personal history of transient ischemic attack (TIA), and cerebral infarction without residual deficits; N47.2 Paraphimosis; N40.1 Benign prostatic hyperplasia with lower urinary tract symptoms; R33.8 Other retention of urine; D64.9 Anemia, unspecified; E11.42 Type 2 diabetes mellitus with diabetic polyneuropathy; Z99.81 Dependence on supplemental oxygen
CPT/HCPCS: 36415; 36600; 51700; 70450; 71045; 71250; 80048; 80053; 80061; 80307; 80320; 81001; 82550; 82553; 82805; 82948; 83036; 83690; 83880; 84443; 84484; 85025; 87071; 87086; 87186; 87205; 93005; 93306; 94640; 94660; 96372; 97139; 99251; 99285; J0696; J1650; J1815; J1940; J2060; J2920; J3486; J7030; J7040; J7042; J7050; U0002